=== PATIENT | male | born 1995 | race Two or more races ===

== ENCOUNTER 2025-01-25 15:56 | Inpatient (IN) | payer BC, SELFPAY ==
[2025-01-25 17:15] VITALS: BP 132/94; PULSE 91; RESP 18; TEMP 36.6; O2SAT 95; BMI 34.7
--- NOTE | 2025-01-25 17:32 | EDRME_ITS ---
Rapid Medical Screening Exam [facility] Arrival date/time: 01/25/25 15:56 Chief Complaint: Abdominal Pain Time Seen by Provider: 01/25/25 17:24 Vital signs: Vital Signs Temperature 98 F 01/25/25 17:15 Pulse Rate 91 01/25/25 17:15 Respiratory Rate 18 01/25/25 17:15 Blood Pressure 132/94 H 01/25/25 17:15 Pulse Oximetry (%) 95 01/25/25 17:15 Oxygen Delivery Method Room Air 01/25/25 17:15 RME Narrative: 29-year-old male with history of recurrent pancreatitis for many years. States he used to be an alcoholic. Reports now has recurrent flareups due to unhealthy eating. [facility] has not been told he has gallstones. Last ultrasound scan states was a year ago. No history of diabetes.
--- NOTE | 2025-01-25 17:34 | XR_ITS ---
Examination: Abdomen sonogram, Limited Date and time of exam: January 25, 2025 1834 hours INDICATIONS: Epigastric pain beginning 7:00 AM this morning, history pancreatitis Technique: Real-time moore scale transabdominal sonographic images of the upper abdomen obtained. Findings: Normal gallbladder Normal common bile duct. Enlarged pancreas 5.1 cm Liver 13.9 cm fatty infiltration Normal hepatopedal portal venous flow Patent IVC IMPRESSION: Recommend CT scan abdomen and pelvis postcontrast follow-up to confirm pancreatitis
[2025-01-25] MEDS: KETOROLAC INJ 60 MG/2 ML VIAL 30 MG IM (18:12)
[2025-01-25] MEDS: ONDANSETRON ODT 4 MG TABRAP PO (18:13)
[2025-01-25 18:16] LABS: Basophils # (Auto) 0.1 Thou/mm3 (0.0-0.2); Basophils % (Auto) 0 % (0-2.5); Eosinophils # (Auto) 0.1 Thou/mm3 (0.0-0.5); Eosinophils % (Auto) 1 % (0-10); Hematocrit 44.6 % (41.0-53.0); Hemoglobin 16.3 g/dL (13.5-16.0); Immature Granulocytes % (Auto) 0 % (0-0); Immature Granulocytes Auto 0.06 Thou/mm3 (0.00-0.00); Lymphocytes # (Auto) 2.3 Thou/mm3 (1.0-4.8); Lymphocytes % (Auto) 15 % (10-50); Mean Corpuscular HGB Conc 36.5 g/dl (31.0-37.0); Mean Corpuscular Volume 85 fL (80-100); Monocytes # (Auto) 0.8 Thou/mm3 (0.0-0.8); Monocytes % (Auto) 5 % (0-12); Neutrophils # (Auto) 12.2 Thou/mm3 (1.8-7.7); Neutrophils % (Auto) 78 % (37-80); Nucleated Red Blood Cell % 0 /100 WBC (0); Platelet Count 246 Thou/mm3 (140-440); RDW Standard Deviation 36.5 fL (35.1-43.9); Red Blood Count 5.26 Miln/mm3 (4.50-5.90); White Blood Count 15.6 Thou/mm3 (3.8-10.6)
[2025-01-25 18:49] LABS: Alanine Aminotransferase 165 U/L (10-49); Albumin, Serum 4.7 gm/dL (3.5-5.0); Albumin/Globulin Ratio 1.6 (1.2-2.2); Alkaline Phosphatase 87 U/L (46-116); Anion Gap 10 (7-16); Aspartate Amino Transferase 86 U/L (0-34); BUN/Creatinine Ratio 16 Ratio (12-20); Bilirubin,Total 1.1 mg/dL (0.3-1.2); Blood Urea Nitrogen 16 mg/dL (9-23); Calcium 9.7 mg/dL (8.3-10.6); Calcium (Corrected) 9.7 mg/dL (8.5-10.1); Carbon Dioxide 27.9 mMol/L (20.0-31.0); Chloride 101 mMol/L (98-107); Estimated Creatinine Clearance 129.3 mL/min (>60); Glucose 125 mg/dL (74-106); Lipase 260 U/L (12-53); Osmolality,Calculated 279 (275-295); Sodium 139 mMol/L (136-145); Total Protein 7.7 gm/dL (5.7-8.2); eGFR > 60 See Note
[2025-01-25 19:06] LABS: Collection Type, Urine Clean Catch; RBC,Urine 0 /hpf (0-3); WBC,Urine 0 /hpf (0-5)
[2025-01-25 19:23] LABS: Bilirubin,Urine Negative (Negative); Blood,Urine Negative (Negative); Clarity,Urine Clear (Clear/Hazy); Color,Urine Yellow (Lt Yel-Yel); Glucose, Urine Negative (Negative); Ketones,Urine Trace (Negative); Leukocyte Esterase,Urine Negative (Negative); Nitrite,Urine Negative (Negative); Protein,Urine Trace (Neg - Trace); Specific Gravity,Urine 1.035 (1.001-1.035); Squamous Epithelial Cell,Urine < 1 /hpf (0-5); Urobilinogen,Urine Negative mg/dL (0.0-1.0)
--- NOTE | 2025-01-25 19:42 | XR_ITS ---
Examination: CT abdomen with intravenous contrast CT pelvis with intravenous contrast 2-D coronal reconstructions 2-D sagittal reconstructions Date and time of exam:January 26, 2025 at 0157 hours INDICATION: Generalized abdominal pain with nausea today, pancreatitis history. CTDI: vol (mGy) 9.88 DLP: (mGycm) 633 Technique: Multiple axial sections of the abdomen and pelvis have been obtained. 64 slice high-resolution scanner used. 3 mm axial sections have been obtained, post intravenous injection 60 cc [id number] 2-D sagittal, coronal reconstructions obtained. Low dose protocols were performed. One or more of the following dose reduction techniques were used; automated exposure control, adjustment of the mA and/or KV according to patient size, use of iterative reconstruction technique. Findings: Diffuse fatty infiltration throughout the liver No gallstones Edema surrounds the pancreas No hydronephrosis. Aorta normal size No bowel obstruction Normal appendix Contracted urinary bladder IMPRESSION: Acute pancreatitis
[2025-01-25 19:52] LABS: Amphetamine/Methamp Scrn,U Negative (Negative); Barbiturate Screen,Urine Negative (Negative); Benzodiazepines Screen,Urine Negative (Negative); Benzoylecgonine Screen, Ur Negative (Negative); Fentanyl Screen,Urine Negative (Negative); Opiate Screen,Urine Positive (Negative); THC Screen,Urine Negative (Negative)
[2025-01-25 23:22] VITALS: BP 130/80; PULSE 85; RESP 18; TEMP 36.8; O2SAT 95
[2025-01-25] MEDS: SODIUM CHLORIDE 0.9% 1000 ML 1,000 ML 999 ML IV (23:35)
[2025-01-25 23:57] LABS: Lactate (Lactic Acid) 0.9 mMol/L (0.4-2.0)
[2025-01-26] VITALS (9 sets, daily range): BP systolic 108–151; BP diastolic 72–90; PULSE 60–95; RESP 16–95; TEMP 36.1–36.6; O2SAT 96–98; BMI 34.3
[2025-01-26] MEDS: MORPHINE SULF INJ 10 MG/ML VIAL 4 MG IVP
[2025-01-26] MEDS: ONDANSETRON INJ 2 MG/ML INJ 2 ML 4 MG IV ×2 (00:01→03:20)
[2025-01-26 00:13] LABS: Triglycerides 213 mg/dL (30-150)
[2025-01-26] MEDS: SODIUM CHLORIDE 0.9% 1000 ML 1,000 ML 999 ML IV (03:19)
[2025-01-26] MEDS: HYDROmorphone INJ 2 MG/ML VIAL 1 MG IVP ×5 (03:20→20:46)
--- NOTE | 2025-01-26 03:30 | PRELIM_ITS ---
CT scan of the abdomen and pelvis with intravenous contrast (axial sections with sagittal and coronal reformats) January 26, 2025 0157 hours Clinical History: Pancreatitis Comparison: None available at the time of this report. Findings: The lung bases are clear. The gallbladder, spleen, kidneys and adrenals are unremarkable. Peripancreatic fat stranding. No pancreatic duct dilation. No collections. Liver steatosis. No evidence of bowel obstruction. No evidence of appendicitis. There is no mesenteric or retroperitoneal adenopathy. The urinary bladder is unremarkable. There is no free fluid or free air. The osseous structures are unremarkable. Impression: Acute pancreatitis. Liver steatosis. Report Electronically Signed By: Ronald Avila 01/26/2025 3:30:10 AM [EST]
--- NOTE | 2025-01-26 03:49 | EDNOTE_ITS ---
ED Abdominal Pain RME/HPI General Chief Complaint: Abdominal Pain Stated complaint: ABD PAIN X 0700; HX PANCREATITIS Time seen by provider: 01/25/25 17:24 Arrival date/time: 01/25/25 15:56 RME / HPI RME / HPI narrative: 29-year-old male with history of recurrent pancreatitis for many years. States he used to be an alcoholic. Reports now has recurrent flareups due to unhealthy eating. States has not been told he has gallstones. Last ultrasound scan states was a year ago. No history of diabetes. This section includes all my notes and documentations, including HPI, PE, and ED course. Tan Garcia MD HPI: 29-year-old male here with about 12-hour history of severe upper abdominal pain. Feels like previous pain from pancreatitis. Has nausea. No vomiting. Decreased oral intake. No other complaints. ROS: All negative except as documented in HPI. Physical Exam: General: Alert and oriented. In severe pain. Eyes: Conjunctivae and lids clear. ENT: No nasal congestion. Neck: Supple. Heart: RRR. Lungs: No respiratory distress. Good air movement. No rhonchi, wheezing, rales. Abdomen: Soft with severe epigastric tenderness. Normal bowel sounds. No distension. No rebound or guarding. Back: No CVA tenderness. Skin: Warm and dry. Neuro: Alert and oriented X 3. I reviewed all diagnostic test results. My review of the gallbladder US report is no acute findings. My review of the abdominal CT report is acute pancreatitis. Blood tests and urine tests remarkable for WBC 15.6, lipase under 60. At this point, diagnoses include acute pancreatitis. Treatment here included IV fluid and multiple doses of Zofran and Toradol and morphine and Dilaudid. Significant improvement not noted. I discussed the case with our hospitalist. About the presentation and exam and diagnostics and treatments here. And need of further care in the hospital. Will accept the patient. Tan Garcia MD Related Data Previous Rx's ?Medication ?Instructions ?Recorded lipase 10,500-protease 1 cap PO TIDWM #90 caps 03/23 05/12 35,500-amylase 61,500 unit capsule,delayed rel (Pancreaze) Held on 01/26/25. Instructions: ran out Allergies Allergy/AdvReac Type Severity Reaction Status Date / Time No Known Allergies Allergy Verified 01/25/25 15:58 Course Quality Measures none Orders Category Date Time Status COVID-19 Screening Questionnaire NOW Care 01/26/25 03:[address] Screening NOW Care 01/25/25 19:42 Active Decision to Admit X1 Care 01/26/25 03:[address] abdomen pelvis w con Stat Exams 01/25/25 19:42 Taken US gall bladder Stat Exams 01/25/25 17:34 Completed CBC Stat Lab 01/25/25 17:57 Completed CMP [Comprehensive Metabolic Panel] Stat Lab 01/25/25 17:57 Completed Drug Screen,Urine Stat Lab 01/25/25 18:59 Completed Lactic Acid [Lactate (Lactic Acid)] Stat Lab 01/25/25 23:47 Completed Lipase Stat Lab 01/25/25 17:57 Completed Triglycerides Stat Lab 01/25/25 23:47 Completed UA [Urinalysis] Stat Lab 01/25/25 18:59 Completed HYDROmorphone INJ [Dilaudid Inj] Med 01/26/25 02:42 Discontinued 1 mg IVP X1 ONE Ketorolac Inj [Toradol Inj] Med 01/25/25 17:34 Discontinued 30 mg IM X1 ONE Morphine Inj Med 01/25/25 23:26 Discontinued 4 mg IVP X1 ONE Ondansetron Inj [Zofran Inj] Med 01/25/25 23:28 Discontinued 4 mg IV X1 ONE Ondansetron Inj [Zofran Inj] Med 01/26/25 02:42 Discontinued 4 mg IV X1 ONE Ondansetron Odt [Zofran Odt] Med 01/25/25 17:34 Discontinued 4 mg PO X1 ONE Sodium Chloride 0.9% 1000 ml [Ns] 1,000 ml Med 01/25/25 23:28 Discontinued IV 999 mls/hr Sodium Chloride 0.9% 1000 ml [Ns] 1,000 ml Med 01/26/25 02:42 Discontinued IV 999 mls/hr Vital Signs Vital signs: Vital Signs Temperature 98 F 01/25/25 17:15 Pulse Rate 91 01/25/25 17:15 Respiratory Rate 18 01/25/25 17:15 Blood Pressure 132/94 H 01/25/25 17:15 Pulse Oximetry (%) 95 01/25/25 17:15 Oxygen Delivery Method Room Air 01/25/25 17:15 Abdominal Pain MDM Patient data External records reviewed:: [facility] previous records Clinical information provided by:: patient Social determinants that could affect healthcare access:: none Patient has the following chronic illnesses:: History of pancreatitis How is presenting disease/condition affected by chronic disease/condition?: exacerbated by Evaluation data The following diagnostics were reviewed and interpreted by me:: lab results and radiology exam(s) Lab and/or radiology exams considered but not ordered:: None Interpretation Summary: Acute pancreatitis Medications / Prescriptions Medications or Prescriptions considered but not ordered:: None Medication administrations:: Medication Administration History Discontinued Medications Hydromorphone HCl (Hydromorphone Inj 2 Mg/Ml Vial) 1 mg IVP X1 ONE Stop: 01/26/25 02:43 Last Admin: 01/26/25 03:20 Dose: 1 mg Documented By: VARSHA Sodium Chloride (Ns) 1,000 mls @ 999 mls/hr IV .Q1H1M ONE Stop: 01/26/25 00:28 Last Infusion: 01/26/25 02:14 Dose: Infused Documented By: Admin: 01/25/25 23:35 Dose: 999 mls/hr Documented By: YIN Sodium Chloride (Ns) 1,000 mls @ 999 mls/hr IV .Q1H1M ONE Stop: 01/26/25 03:42 Last Admin: 01/26/25 03:19 Dose: 999 mls/hr Documented By: VARSHA Ketorolac Tromethamine (Ketorolac Inj 60 Mg/2 Ml Vial) 30 mg IM X1 ONE Stop: 01/25/25 17:35 Last Admin: 01/25/25 18:12 Dose: 30 mg Documented By: YIN Morphine Sulfate (Morphine Sulf Inj 10 Mg/Ml Vial) 4 mg IVP X1 ONE Stop: 01/25/25 23:27 Last Admin: 01/26/25 00:00 Dose: 4 mg Documented By: VIDHI Ondansetron HCl (Ondansetron Odt 4 Mg Tabrap) 4 mg PO X1 ONE; Protocol Stop: 01/25/25 17:35 Last Admin: 01/25/25 18:13 Dose: 4 mg Documented By: YIN Ondansetron HCl (Ondansetron Inj 2 Mg/Ml Inj 2 Ml) 4 mg IV X1 ONE; Protocol Stop: 01/25/25 23:29 Last Admin: 01/26/25 00:01 Dose: 4 mg Documented By: VIDHI Ondansetron HCl (Ondansetron Inj 2 Mg/Ml Inj 2 Ml) 4 mg IV X1 ONE; Protocol Stop: 01/26/25 02:43 Last Admin: 01/26/25 03:20 Dose: 4 mg Documented By: VARSHA IV fluid, Zofran, Toradol, morphine, Dilaudid Consultations Consultation(s) initiated? (list below): No Diagnosis Differential diagnosis abdominal pain: abdominal pain, acute appendicitis, calculus of kidney, constipation, diverticulitis, endometriosis, gastroenteritis, pancreatitis and small bowel obstruction Most likely diagnosis given after review of the tests above:: Acute pancreatitis Admission Indicated Admission indicated?: indicated Explain why admission is indicated or not indicated:: No significant improvement despite treatment in ER. Admission Request Was there a request for admission?: Yes Admission Attestation Admission request attestation: Discussed case with Hospitalist service regarding admission. Discussed patients ED course, exam findings, labs, and radiology results. The Hospitalist [agrees] to accept the patient for admission. Disposition Plan Disposition Plan: Admit Discharge Plan Plan Patient Disposition: Admit Acute Care w/in Hospital Prescriptions/Referrals Prescriptions/Med Rec: No Action Pancreaze 10,500-35,500- 61,500 unit Capsule,Delayed Release(Dr/Ec) 1 cap PO TIDWM Qty: 90 0RF Referrals: No Primary/Family,Physician [Primary Care Provider] - In 1 week Problem List Clinical Impression: Pancreatitis Patient/Caregiver Discharge Instructions Print Language: Kiswahili Stand Alone Forms: [facility]ec[facility]le Award Info., Patient Portal Info Letter
--- NOTE | 2025-01-26 04:38 | PD.RESHP ---
Documentation for date of: 01/26/25 HPI History of Present Illness Chief complaint: epigastric pain History of present illness: The patient is a 29-year-old male with previous medical history of acute alcohol induced pancreatitis, per chart review opioid and cocaine use, hypertension who only wants to like who came into the ED due to the epigastric pain that started the previous day on approximately 7 AM. He woke up with epigastric pain, intensity 8 out of 10, reports that he had taken pain medication that he had left from previous hospitalizations, denies nausea, vomiting, diarrhea, bloody stools, general weakness. ED course: Vitals stable, saturates well on room air, afebrile. Labs remarkable for mild leukocytosis 15.6, glucose 125, AST 86, ALT 165, lipase initially was 408, down trended to 260, triglycerides 213. U tox was positive for opiates. Gallbladder ultrasound was negative for acute cholecystitis, showed enlarged pancreas 5.1 cm, fatty liver. CT abdomen pelvis showed signs of acute pancreatitis and fatty liver. In the ED patient received ketorolac, 4 mg of morphine, 1 mg of hydromorphone, ondansetron and fluids. He reports his pain has improved. Social history: Works as a advanced analytics associate, denies smoking, denies recent alcohol use, denies recreational substances. Medications: denies taking Surgical history: denies Patient will be admitted for acute cholecystitis treatment and management. Review of Systems Review of Systems Systems Reviewed: All systems reviewed, normal except as documented Past Medical History Past Medical History NEUROLOGIC: Negative Neurological Disorders CARDIAC: Negative Cardiac Disorders RESPIRATORY: Negative Respiratory Disorders GASTROINTESTINAL: Positive Gastrointestinal Disorders and Pancreatitis GENITOURINARY: Negative Genitourinary Disorders MUSCULOSKELETAL: Negative Musculoskeletal Disorders ENT: Negative History of ENT Problems ENDOCRINE: Negative Endocrine Disorders HEMATOLOGIC: Negative Blood Disorders PSYCHO/SOCIAL: Positive Recreational Drug Use (denies recent use) OTHER HISTORY: Positive Hospitalization (acute pancreatitis) Exam Vital Signs Temp Pulse Resp BP Pulse Ox O2 Del Method 98.2 F 85 18 130/80 95 Room Air 01/25/25 23:22 01/25/25 23:22 01/25/25 23:22 01/25/25 23:22 01/25/25 23:22 01/25/25 23:22 Narrative Exam Physical Exam General: Awake and in no acute distress. Conversational and non-toxic appearing. HEENT: Normocephalic, atraumatic, mucous membranes moist. Heart: Regular rate and rhythm, no murmurs. Lungs: Clear to auscultation with no wheezing or crackles. Abdomen: Soft, nondistended, epigastric tenderness, positive bowel sounds. ?No guarding or rebound tenderness. Neurologic: Alert and oriented x3, no gross neurological deficit, and patient able to move all 4 extremities. Extremities: No edema. Skin: Diffuse urticaria on the abdomen, no ecchymoses. Results: Labs 01/25/25 17:57 01/25/25 17:57 Labs: Short CBC 01/25/25 Range/Units 17:57 WBC 15.6 H (3.8-10.6) Thou/mm3 Hgb 16.3 H (13.5-16.0) g/dL Hct 44.6 (41.0-53.0) % Plt Count 246 (140-440) Thou/mm3 BMP 01/25/25 17:57 Sodium 139 Potassium 4.0 Chloride 101 Carbon Dioxide 27.9 BUN 16 Creatinine 1.0 Glucose 125 H Calcium 9.7 Liver Function 01/25/25 Range/Units 17:57 Total Bilirubin 1.1 (0.3-1.2) mg/dL AST 86 H (0-34) U/L ALT 165 H (10-49) U/L Alkaline Phosphatase 87 (46-116) U/L Albumin 4.7 (3.5-5.0) gm/dL Urine 01/25/25 Range/Units 18:59 Urine Color Yellow (Lt Yel-Yel) Urine Clarity Clear (Clear/Hazy) Urine pH 6.0 (5.0-7.0) Ur Specific [place] 1.035 (1.001-1.035) Urine Protein Trace (Neg - Trace) Urine Glucose (UA) Negative (Negative) Quality Measures Quality Measures VTE prophylaxis Medications Home Medications and Allergies Home Medications ?Medication ?Instructions ?Recorded ?Confirmed ?Type No Known Home Medications 01/26/25 01/26/25 History Allergies Allergy/AdvReac Type Severity Reaction Status Date / Time No Known Allergies Allergy Verified 01/25/25 15:58 Visit Medications Acetaminophen (Acetaminophen 325 Mg Tablet) 650 mg PO Q6H PRN PRN Reason: Fever >100.3 or pain 1-3 Stop: 02/25/25 04:20 Acetaminophen (Acetaminophen Supp 650 Mg Supp) 650 mg LA Q6HR PRN PRN Reason: Fever > 100.3 or pain 1-3 Stop: 02/25/25 04:20 Enoxaparin Sodium (Enoxaparin Sod Inj 40 Mg/0.4 Ml Syringe) 40 mg SC QDAY [facility] Stop: 02/09/25 08:59 Lactated Ringer's (Lactated Ringers) 1,000 mls @ 150 mls/hr IV .Q6H40M CARO Stop: 02/25/25 04:35 Sennosides (Senna Tablet) 1 tab PO QDAY PRN; Protocol PRN Reason: constipation Stop: 02/25/25 04:20 Discontinued Medications Hydromorphone HCl (Hydromorphone Inj 2 Mg/Ml Vial) 1 mg IVP X1 ONE Stop: 01/26/25 02:43 Last Admin: 01/26/25 03:20 Dose: 1 mg Sodium Chloride (Ns) 1,000 mls @ 999 mls/hr IV .Q1H1M ONE Stop: 01/26/25 00:28 Last Infusion: 01/26/25 02:14 Dose: Infused Sodium Chloride (Ns) 1,000 mls @ 999 mls/hr IV .Q1H1M ONE Stop: 01/26/25 03:42 Last Infusion: 01/26/25 04:18 Dose: Infused Ketorolac Tromethamine (Ketorolac Inj 60 Mg/2 Ml Vial) 30 mg IM X1 ONE Stop: 01/25/25 17:35 Last Admin: 01/25/25 18:12 Dose: 30 mg Morphine Sulfate (Morphine Sulf Inj 10 Mg/Ml Vial) 4 mg IVP X1 ONE Stop: 01/25/25 23:27 Last Admin: 01/26/25 00:00 Dose: 4 mg Ondansetron HCl (Ondansetron Odt 4 Mg Tabrap) 4 mg PO X1 ONE; Protocol Stop: 01/25/25 17:35 Last Admin: 01/25/25 18:13 Dose: 4 mg Ondansetron HCl (Ondansetron Inj 2 Mg/Ml Inj 2 Ml) 4 mg IV X1 ONE; Protocol Stop: 01/25/25 23:29 Last Admin: 01/26/25 00:01 Dose: 4 mg Ondansetron HCl (Ondansetron Inj 2 Mg/Ml Inj 2 Ml) 4 mg IV X1 ONE; Protocol Stop: 01/26/25 02:43 Last Admin: 01/26/25 03:20 Dose: 4 mg Assessment & Plan Plan The patient is a 29-year-old male with previous medical history of acute alcohol induced pancreatitis, per chart review opioid and cocaine use, hypertension who only wants to like who came into the ED due to the epigastric pain that started the previous day on approximately 7 AM. Patient will be admitted for acute cholecystitis treatment and management. #Acute pancreatitis #History of alcohol induced pancreatitis Patient reports epigastic pain irradiating to the back. Lipase was 408, triglycerides 213. Plan: - NPO - Ringer Lactate at 125 ml/hr - monitor CMP - lipid panel - low fat diet on discharge #History of hypertension Plan: - blood pressure is normal, will hold off blood pressure medications #History of substance abuse Stable. Plan: - follow up outpatient if needed Health maintenance: FEN: NPO DVT prophylaxis: lovenox GI prophylaxis: none Dispo: medsurg CODE STATUS: Full code Plan of care discussed with attending Dr. Schaffer, PGY-[address] Sewell. Delmy Robledo MD, PGY 1. Attending Provider Attestation/Addendum 29-year-old male patient with history of alcoholic pancreatitis was seen in the ER complaining of abdominal pain mainly epigastric, denies nausea and vomiting. Pain was relieved slightly by IV morphine in the ER. Initial lipase was greater than 400. CO2 was 27, calcium 9.7, creatinine 1.0. Triglyceride 213. Ultrasound of the abdomen showed normal gallbladder. CT scan showed acute pancreatitis. Patient is currently admitted for recurrent pancreatitis currently denies alcohol use. Patient is on IV fluids. He will receive IV pain medications. Discussed with housestaff
[2025-01-26] MEDS: RINGERS LACTATED 1000 ML 1,000 ML 150 ML IV ×3 (05:10→20:25)
--- NOTE | 2025-01-26 05:36 | PC.NURSE ---
Report called to Leona LANDON
[2025-01-26 06:47] LABS: Basophils # (Auto) 0.1 Thou/mm3 (0.0-0.2); Basophils % (Auto) 1 % (0-2.5); Eosinophils # (Auto) 0.2 Thou/mm3 (0.0-0.5); Eosinophils % (Auto) 2 % (0-10); Hematocrit 40.4 % (41.0-53.0); Hemoglobin 14.5 g/dL (13.5-16.0); Immature Granulocytes % (Auto) 0 % (0-0); Immature Granulocytes Auto 0.03 Thou/mm3 (0.00-0.00); Lymphocytes # (Auto) 2.8 Thou/mm3 (1.0-4.8); Lymphocytes % (Auto) 28 % (10-50); Mean Corpuscular HGB Conc 35.9 g/dl (31.0-37.0); Mean Corpuscular Hemoglobin 30.9 pg (25.0-35.0); Mean Corpuscular Volume 86 fL (80-100); Monocytes # (Auto) 0.8 Thou/mm3 (0.0-0.8); Monocytes % (Auto) 8 % (0-12); Neutrophils % (Auto) 61 % (37-80); Nucleated Red Blood Cell % 0 /100 WBC (0); Platelet Count 219 Thou/mm3 (140-440); RDW Standard Deviation 38.5 fL (35.1-43.9); White Blood Count 9.9 Thou/mm3 (3.8-10.6)
[2025-01-26 07:13] LABS: Alanine Aminotransferase 116 U/L (10-49); Albumin/Globulin Ratio 1.5 (1.2-2.2); Alkaline Phosphatase 73 U/L (46-116); Anion Gap 8 (7-16); Aspartate Amino Transferase 49 U/L (0-34); BUN/Creatinine Ratio 17 Ratio (12-20); Bilirubin,Total 1.2 mg/dL (0.3-1.2); Blood Urea Nitrogen 17 mg/dL (9-23); Calcium 8.6 mg/dL (8.3-10.6); Calcium (Corrected) 8.6 mg/dL (8.5-10.1); Carbon Dioxide 29.3 mMol/L (20.0-31.0); Cardiac Risk Estimate 5.1 RATIO (4.0-6.7); Chloride 105 mMol/L (98-107); Cholesterol 164 mg/dL (132-200); Estimated Creatinine Clearance 128.8 mL/min (>60); Globulin 2.6 gm/dL (2.3-3.5); Glucose 133 mg/dL (74-106); HDL Cholesterol 32 mg/dL (40-60); LDL Cholesterol,Calculated 94 mg/dL (0-130); Osmolality,Calculated 286 (275-295); Potassium 4.2 mMol/L (3.4-5.1); Sodium 142 mMol/L (136-145); Total Protein 6.6 gm/dL (5.7-8.2); Triglycerides 192 mg/dL (30-150); eGFR > 60 See Note
--- NOTE | 2025-01-26 10:04 | PC.SS ---
Anastacio Westfall is a 29-year-old male admitted to [place] for Acute Pancreatitis. SS conducted bedside contact with the patient to complete initial assessment and to discuss discharge planning.? Patient confirmed demographic information. Patient identifies his Mother Marielle Westfall [phone] as his surrogate decision maker. Patient resides at home with family. Pt states he is able to complete all ADL?s independently, no need for any source of DME. Pt reports not having a PCP and is not interested at this time and pharmacy of choice is [facility]. DC option discussed and pt wishes to return home. Pts family will provide transportation upon DC. No further intervention required at this time, manager social responsibility would be available to address any further concerns. DC Plan: Home Contact: Mother-Marielle PCP: None
--- NOTE | 2025-01-26 15:10 | PC.SS ---
Rounding: Pain management and increase diet as tolerated
--- NOTE | 2025-01-26 15:42 | ESPR_ITS ---
<Statement entered by Desmond Rosenberg MD - 01/27/25 07:30> Senior Resident Attestation: I supervised/discussed management plan with operations intern physician Dr. Cespedes, and was involved in the care of this patient. I personally saw and examined the patient and discussed the assessment and plan with the entire medicine team, including my attending. I agree with the assessment and plan as documented. Patient's care was discussed with attending physician, Dr. Chen. Desmond Rosenberg MD PGY-2. Documentation for date of: 01/26/25 Subjective Subjective Interval history: Patient is seen and examined at bedside No acute overnight events. Currently, patient is tolerating pain with the medications Vitals are stable. On physical examination mild epigastric tenderness is noted Labs showed CBC and CMP within normal limits except for mildly elevated AST and ALT Lipase is down to 260 Exam Vital Signs Temp Pulse Resp BP Pulse Ox O2 Del Method 97.3 F 88 16 142/87 H 96 Room Air 01/26/25 11:52 01/26/25 11:52 01/26/25 11:52 01/26/25 11:52 01/26/25 11:52 01/26/25 11:52 Narrative Exam General: Awake. HEENT: Normocephalic, atraumatic, mucous membranes moist. Heart: Regular rate and rhythm, no murmurs. Lungs: Clear to auscultation with no wheezing or crackles. Abdomen: Soft, nondistended, mild tenderness in the epigastric region, positive bowel sounds. ?No guarding or rebound tenderness. Neurologic: Alert and oriented x3, no gross neurological deficit, and patient able to move all 4 extremities. Extremities: No edema. Skin: No rash or ecchymoses. Objective Labs 01/27/25 04:12 01/27/25 04:12 Labs: Laboratory Results - last 24 hr 01/25/25 01/25/25 01/25/25 17:57 18:59 23:47 WBC 15.6 H RBC 5.26 Hgb 16.3 H Hct 44.6 MCV 85 MCH 31.0 MCHC 36.5 RDW Std Deviation 36.5 Plt Count 246 Neut % (Auto) 78 Lymph % (Auto) 15 [place] % (Auto) 5 Eos % (Auto) 1 Baso % (Auto) 0 Neut # (Auto) 12.2 H Lymph # (Auto) 2.3 [place] # (Auto) 0.8 Eos # (Auto) 0.1 Baso # (Auto) 0.1 Immature Gran # (Auto) 0.06 H Absolute Nucleated RBC 0.00 Immature Gran % 0 Nucleated RBC % 0 Sodium 139 Potassium 4.0 Chloride 101 Carbon Dioxide 27.9 Anion Gap 10 BUN 16 Creatinine 1.0 Estim Creat Clear Calc 129.3 eGFR > 60 BUN/Creatinine Ratio 16 Glucose 125 H Calculated Osmolality 279 Lactic Acid 0.9 Calcium 9.7 Corrected Calcium 9.7 Total Bilirubin 1.1 AST 86 H ALT 165 H Alkaline Phosphatase 87 Total Protein 7.7 Albumin 4.7 Globulin 3.0 Albumin/Globulin Ratio 1.6 Triglycerides 213 H Cholesterol LDL Cholesterol, Calc HDL Cholesterol Cholesterol/HDL Ratio Lipase 260 H Ur Collection Type Clean Catch Urine Color Yellow Urine Clarity Clear Urine pH 6.0 Ur Specific [place] 1.035 Urine Protein Trace Urine Glucose (UA) Negative Urine Ketones Trace Urine Blood Negative Urine Nitrite Negative Urine Bilirubin Negative Urine Urobilinogen (Auto) Negative Ur Leukocyte Esterase Negative Urine RBC 0 Urine WBC 0 Ur Squamous Epith Cells < 1 Urine Bacteria None Urine Opiates Screen Positive A Urine Fentanyl Screen Negative Ur Barbiturates Screen Negative U Amphetamin/Meth Scrn Negative U Benzodiazepines Scrn Negative U Cocaine Metab Screen Negative U Marijuana (THC) Screen Negative 01/26/25 06:24 WBC 9.9 D RBC 4.70 Hgb 14.5 Hct 40.4 L MCV 86 MCH 30.9 MCHC 35.9 RDW Std Deviation 38.5 Plt Count 219 Neut % (Auto) 61 Lymph % (Auto) 28 [place] % (Auto) 8 Eos % (Auto) 2 Baso % (Auto) 1 Neut # (Auto) 6.0 Lymph # (Auto) 2.8 [place] # (Auto) 0.8 Eos # (Auto) 0.2 Baso # (Auto) 0.1 Immature Gran # (Auto) 0.03 H Absolute Nucleated RBC 0.00 Immature Gran % 0 Nucleated RBC % 0 Sodium 142 Potassium 4.2 Chloride 105 Carbon Dioxide 29.3 Anion Gap 8 BUN 17 Creatinine 1.0 Estim Creat Clear Calc 128.8 eGFR > 60 BUN/Creatinine Ratio 17 Glucose 133 H Calculated Osmolality 286 Lactic Acid Calcium 8.6 Corrected Calcium 8.6 Total Bilirubin 1.2 AST 49 H ALT 116 H Alkaline Phosphatase 73 Total Protein 6.6 Albumin 4.0 D Globulin 2.6 Albumin/Globulin Ratio 1.5 Triglycerides 192 H Cholesterol 164 LDL Cholesterol, Calc 94 HDL Cholesterol 32 L Cholesterol/HDL Ratio 5.1 Lipase Ur Collection Type Urine Color Urine Clarity Urine pH Ur Specific [place] Urine Protein Urine Glucose (UA) Urine Ketones Urine Blood Urine Nitrite Urine Bilirubin Urine Urobilinogen (Auto) Ur Leukocyte Esterase Urine RBC Urine WBC Ur Squamous Epith Cells Urine Bacteria Urine Opiates Screen Urine Fentanyl Screen Ur Barbiturates Screen U Amphetamin/Meth Scrn U Benzodiazepines Scrn U Cocaine Metab Screen U Marijuana (THC) Screen Quality Measures Quality Measures VTE prophylaxis Assessment & Plan Assessment Current Active Medications: Generic Name Dose Route Start Last Admin Trade Name Freq PRN Reason Stop Dose Admin Acetaminophen 650 mg 01/26/25 04:21 Acetaminophen 325 Mg Tablet PO 02/25/25 04:20 Q6H PRN Fever >100.3 or pain 1-3 Acetaminophen 650 mg 01/26/25 04:21 Acetaminophen Supp 650 Mg Supp [place] 02/25/25 04:20 Q6HR PRN Fever > 100.3 or pain 1-3 Enoxaparin Sodium 40 mg 01/26/25 09:00 01/26/25 08:29 Enoxaparin Sod Inj 40 Mg/0.4 Ml Syringe SC 02/09/25 08:59 Not Given QDAY CARO Hydromorphone HCl 1 mg 01/26/25 04:38 01/26/25 11:41 Hydromorphone Inj 2 Mg/Ml Vial IVP 01/31/25 04:37 1 mg Q4HR PRN Administration PAIN SCALE 7-10 (Severe Lactated Ringer's 1,000 mls @ 150 mls/hr 01/26/25 04:36 01/26/25 12:36 Lactated Ringers IV 02/25/25 04:35 150 mls/hr .Q6H40M CARO Administration Morphine Sulfate 1 mg 01/26/25 04:38 Morphine Sulf Inj 10 Mg/Ml Vial IVP 01/31/25 04:37 Q4HR PRN PAIN SCALE 4-6 (Moderate Sennosides 1 tab 01/26/25 04:21 Senna Tablet PO 02/25/25 04:20 QDAY PRN constipation Protocol Plan a 29-year-old male with previous medical history of acute alcohol induced pancreatitis, hypertension who came into the ED due to the epigastric pain that started the previous day on approximately 7 AM. Patient will be admitted for acute pancreatitis management. # Recurrent acute pancreatitis #History of alcohol induced pancreatitis Patient reports epigastic pain radiating to the back. -Last alcohol consumption was 8 to 9 years ago, but patient -Lipase is 260, triglycerides 213. Plan: - NPO - Ringer Lactate at 150 ml/hr - Hydromorphone 1 Mg as needed every 4th hrly #History of hypertension Plan: - blood pressure is normal, will hold off blood pressure medications Health maintenance: FEN: NPO DVT prophylaxis: lovenox GI prophylaxis: none Dispo: medsurg CODE STATUS: Full code Patient plan of care was discussed with the attending physician, Dr. Chen and senior resident Dr. Shakira Cespedes, PGY1
[2025-01-27] VITALS (8 sets, daily range): BP systolic 110–132; BP diastolic 62–97; PULSE 51–86; RESP 16–97; TEMP 36.2–36.6; O2SAT 95–99
[2025-01-27] MEDS: HYDROmorphone INJ 2 MG/ML VIAL 1 MG IVP ×7 (00:50→23:55)
[2025-01-27] MEDS: RINGERS LACTATED 1000 ML 1,000 ML 150 ML IV (03:15)
[2025-01-27 05:07] LABS: Basophils # (Auto) 0.1 Thou/mm3 (0.0-0.2); Basophils % (Auto) 1 % (0-2.5); Eosinophils # (Auto) 0.2 Thou/mm3 (0.0-0.5); Eosinophils % (Auto) 3 % (0-10); Hematocrit 41.4 % (41.0-53.0); Hemoglobin 14.7 g/dL (13.5-16.0); Immature Granulocytes % (Auto) 0 % (0-0); Immature Granulocytes Auto 0.03 Thou/mm3 (0.00-0.00); Lymphocytes # (Auto) 2.9 Thou/mm3 (1.0-4.8); Lymphocytes % (Auto) 31 % (10-50); Mean Corpuscular HGB Conc 35.5 g/dl (31.0-37.0); Mean Corpuscular Hemoglobin 30.9 pg (25.0-35.0); Mean Corpuscular Volume 87 fL (80-100); Monocytes # (Auto) 0.6 Thou/mm3 (0.0-0.8); Monocytes % (Auto) 7 % (0-12); Neutrophils # (Auto) 5.5 Thou/mm3 (1.8-7.7); Neutrophils % (Auto) 58 % (37-80); Nucleated Red Blood Cell % 0 /100 WBC (0); Platelet Count 214 Thou/mm3 (140-440); RDW Standard Deviation 38.4 fL (35.1-43.9); Red Blood Count 4.75 Miln/mm3 (4.50-5.90); White Blood Count 9.4 Thou/mm3 (3.8-10.6)
[2025-01-27 05:33] LABS: Alanine Aminotransferase 90 U/L (10-49); Albumin, Serum 4.1 gm/dL (3.5-5.0); Albumin/Globulin Ratio 1.5 (1.2-2.2); Alkaline Phosphatase 74 U/L (46-116); Anion Gap 10 (7-16); Aspartate Amino Transferase 37 U/L (0-34); BUN/Creatinine Ratio 11 Ratio (12-20); Bilirubin,Total 1.3 mg/dL (0.3-1.2); Blood Urea Nitrogen 10 mg/dL (9-23); Calcium 9.2 mg/dL (8.3-10.6); Calcium (Corrected) 9.2 mg/dL (8.5-10.1); Carbon Dioxide 29.5 mMol/L (20.0-31.0); Chloride 101 mMol/L (98-107); Creatinine (Component) 0.9 mg/dL (0.6-1.3); Estimated Creatinine Clearance 143.1 mL/min (>60); Globulin 2.7 gm/dL (2.3-3.5); Glucose 113 mg/dL (74-106); Osmolality,Calculated 279 (275-295); Potassium 3.8 mMol/L (3.4-5.1); Sodium 140 mMol/L (136-145); Total Protein 6.8 gm/dL (5.7-8.2); eGFR > 60 See Note
--- NOTE | 2025-01-27 10:03 | PC.SS ---
SS follow up note; Possible discharge home today if patient is able to tolerate diet.
[2025-01-27] MEDS: RINGERS LACTATED 1000 ML 1,000 ML 125 ML IV ×2 (10:55→19:53)
--- NOTE | 2025-01-27 15:58 | PC.NURSE ---
Patient c/o pain to abd radiating to back 08/01. Patient states pain is causing anxiety leading tingling in face, lips and finger tips. Patient states needs pain medication. Dilaudid pain medication not due until 1620. RN called . Per okay to give Dilaudid now.
--- NOTE | 2025-01-27 16:08 | ESPR_ITS ---
<Statement entered by Desmond Rosenberg MD - 01/29/25 07:35> Senior Resident Attestation: I supervised/discussed management plan with art gallery internship physician Dr. Cespedes, and was involved in the care of this patient. I personally saw and examined the patient and discussed the assessment and plan with the entire medicine team, including my attending. I agree with the assessment and plan as documented. Patient's care was discussed with attending physician, Dr. Zacarias. Desmond Rosenberg MD PGY-2. Documentation for date of: 01/27/25 Subjective Subjective Interval history: Patient is seen and examined at bedside No acute overnight events. Still complaining of mild abdominal pain and not able to tolerate diet, even clear liquids Vitals are stable. Physical examination remains unremarkable Labs showed CBC and CMP within normal limits except for mildly elevated total bilirubin 1.3, AST and ALT are downtrending We will continue IV fluids, opioids as needed for pain Exam Vital Signs Temp Pulse Resp BP Pulse Ox O2 Del Method 97.1 F 54 L 16 126/73 96 Room Air 01/27/25 12:00 01/27/25 12:00 01/27/25 12:00 01/27/25 12:00 01/27/25 12:00 01/27/25 12:00 Narrative Exam General: Awake. HEENT: Normocephalic, atraumatic, mucous membranes moist. Heart: Regular rate and rhythm, no murmurs. Lungs: Clear to auscultation with no wheezing or crackles. Abdomen: Soft, nondistended, mild tenderness in the epigastric region, positive bowel sounds. ?No guarding or rebound tenderness. Neurologic: Alert and oriented x3, no gross neurological deficit, and patient able to move all 4 extremities. Extremities: No edema. Skin: No rash or ecchymoses. Objective Labs 01/28/25 04:20 01/28/25 04:20 Labs: Laboratory Results - last 24 hr 01/27/25 04:12 WBC 9.4 RBC 4.75 Hgb 14.7 Hct 41.4 MCV 87 MCH 30.9 MCHC 35.5 RDW Std Deviation 38.4 Plt Count 214 Neut % (Auto) 58 Lymph % (Auto) 31 [place] % (Auto) 7 Eos % (Auto) 3 Baso % (Auto) 1 Neut # (Auto) 5.5 Lymph # (Auto) 2.9 [place] # (Auto) 0.6 Eos # (Auto) 0.2 Baso # (Auto) 0.1 Immature Gran # (Auto) 0.03 H Absolute Nucleated RBC 0.00 Immature Gran % 0 Nucleated RBC % 0 Sodium 140 Potassium 3.8 Chloride 101 Carbon Dioxide 29.5 Anion Gap 10 BUN 10 Creatinine 0.9 Estim Creat Clear Calc 143.1 eGFR > 60 BUN/Creatinine Ratio 11 L Glucose 113 H Calculated Osmolality 279 Calcium 9.2 Corrected Calcium 9.2 Total Bilirubin 1.3 H AST 37 H ALT 90 H Alkaline Phosphatase 74 Total Protein 6.8 Albumin 4.1 Globulin 2.7 Albumin/Globulin Ratio 1.5 Quality Measures Quality Measures VTE prophylaxis Assessment & Plan Assessment Current Active Medications: Generic Name Dose Route Start Last Admin Trade Name Freq PRN Reason Stop Dose Admin Acetaminophen 650 mg 01/26/25 04:21 Acetaminophen 325 Mg Tablet PO 02/25/25 04:20 Q6H PRN Fever >100.3 or pain 1-3 Acetaminophen 650 mg 01/26/25 04:21 Acetaminophen Supp 650 Mg Supp [place] 02/25/25 04:20 Q6HR PRN Fever > 100.3 or pain 1-3 Enoxaparin Sodium 40 mg 01/26/25 09:00 01/27/25 08:20 Enoxaparin Sod Inj 40 Mg/0.4 Ml Syringe SC 02/09/25 08:59 Not Given QDAY CARO Hydromorphone HCl 1 mg 01/26/25 04:38 01/27/25 15:55 Hydromorphone Inj 2 Mg/Ml Vial IVP 01/31/25 04:37 1 mg Q4HR PRN Administration PAIN SCALE 7-10 (Severe Lactated Ringer's 1,000 mls @ 150 mls/hr 01/26/25 04:36 01/27/25 03:15 Lactated Ringers IV 02/25/25 04:35 150 mls/hr .Q6H40M CARO Administration Lactated Ringer's 1,000 mls @ 125 mls/hr 01/27/25 10:50 01/27/25 10:55 Lactated Ringers IV 01/28/25 02:49 125 mls/hr .Q8H CARO Administration Sennosides 1 tab 01/26/25 04:21 Senna Tablet PO 02/25/25 04:20 QDAY PRN constipation Protocol Plan a 29-year-old male with previous medical history of acute alcohol induced pancreatitis, hypertension who came into the ED due to the epigastric pain that started the previous day on approximately 7 AM. Patient will be admitted for acute Pancreatitis management. # Recurrent acute pancreatitis, unsure of the cause # History of alcohol induced pancreatitis Patient reports epigastic pain radiating to the back. Last alcohol consumption was 8 to 9 years ago, per patient Lipase is 260 and triglycerides 213 at the time of admission Plan: - Clear liquid diet - Ringer Lactate at 150 ml/hr - Hydromorphone 1 Mg as needed every 4th hrly -Recommended to follow-up in outpatient basis for workup of recurrent acute pancreatitis -Recommended to stop marijuana # Hyperbilirubinemia # Transaminitis, resolving -AST and ALT are downtrending since the time of admission, likely elevated in the setting of acute illness -Total bilirubin seems to be uptrending since the time of admission, as of 01/27/2025, total bilirubin is 1.3 -Will continue to monitor liver functions and if the lab values are uptrending, will workup #History of hypertension Plan: - blood pressure is normal, will hold off blood pressure medications # Marijuana abuse -Patient admitted that he is smoking marijuana -Educated about stopping the use of marijuana Health maintenance: FEN: Clear liquid diet DVT prophylaxis: lovenox GI prophylaxis: none Dispo: medsurg CODE STATUS: Full code Patient plan of care was discussed with the attending physician, Dr. Zacarias and senior resident Dr. Shakira Cespedes, PGY1 Attending Provider Attestation/Addendum I attest that I was physically present for the evaluation, physical examination, lab and imaging review of the patient with the residents. I discussed the case with the residents and agree with the findings and plans of care as documented above. At bedside today, patient appears comfortable.? States that his pain has improved but not resolved completely.? Continues to be on IV hydration.? Was started on diet, complains of abdominal pain with food.? We will continue with IV analgesics and antiemetics.? Bilirubin noted to be slightly uptrending, we will monitor closely. Kailee Zacarias MD
[2025-01-28] VITALS: BP 148/98; PULSE 53; RESP 18; TEMP 36.4; O2SAT 100
--- NOTE | 2025-01-28 02:26 | PC.NURSE ---
Pt called stated he is in pain 06/01, states that Dilaudid does not last that long and would like to try a different regimen, would like MDs to be contacted. Contacted Dr. Melodie MD to input orders.
[2025-01-28] MEDS: HYDROmorphone INJ 2 MG/ML VIAL 0.5 MG IVP (02:56)
[2025-01-28] MEDS: RINGERS LACTATED 1000 ML 1,000 ML 150 ML IV (02:56)
[2025-01-28 04:00] VITALS: BP 130/63; PULSE 65; RESP 18; TEMP 36.2; O2SAT 99
[2025-01-28] MEDS: HYDROmorphone INJ 2 MG/ML VIAL 1 MG IVP ×2 (05:25→09:45)
[2025-01-28 05:45] LABS: Basophils # (Auto) 0.1 Thou/mm3 (0.0-0.2); Basophils % (Auto) 1 % (0-2.5); Eosinophils # (Auto) 0.3 Thou/mm3 (0.0-0.5); Eosinophils % (Auto) 4 % (0-10); Hematocrit 40.7 % (41.0-53.0); Hemoglobin 14.7 g/dL (13.5-16.0); Immature Granulocytes % (Auto) 0 % (0-0); Immature Granulocytes Auto 0.03 Thou/mm3 (0.00-0.00); Lymphocytes # (Auto) 2.8 Thou/mm3 (1.0-4.8); Lymphocytes % (Auto) 34 % (10-50); Mean Corpuscular HGB Conc 36.1 g/dl (31.0-37.0); Mean Corpuscular Hemoglobin 30.9 pg (25.0-35.0); Mean Corpuscular Volume 86 fL (80-100); Monocytes # (Auto) 0.7 Thou/mm3 (0.0-0.8); Monocytes % (Auto) 8 % (0-12); Neutrophils # (Auto) 4.4 Thou/mm3 (1.8-7.7); Neutrophils % (Auto) 54 % (37-80); Nucleated Red Blood Cell % 0 /100 WBC (0); Platelet Count 232 Thou/mm3 (140-440); RDW Standard Deviation 36.7 fL (35.1-43.9); Red Blood Count 4.75 Miln/mm3 (4.50-5.90); White Blood Count 8.3 Thou/mm3 (3.8-10.6)
[2025-01-28 06:08] LABS: Alanine Aminotransferase 100 U/L (10-49); Albumin, Serum 4.4 gm/dL (3.5-5.0); Albumin/Globulin Ratio 1.6 (1.2-2.2); Alkaline Phosphatase 75 U/L (46-116); Anion Gap 10 (7-16); Aspartate Amino Transferase 57 U/L (0-34); BUN/Creatinine Ratio 10 Ratio (12-20); Bilirubin,Total 1.5 mg/dL (0.3-1.2); Blood Urea Nitrogen 9 mg/dL (9-23); Calcium 9.9 mg/dL (8.3-10.6); Calcium (Corrected) 9.9 mg/dL (8.5-10.1); Carbon Dioxide 29.1 mMol/L (20.0-31.0); Chloride 100 mMol/L (98-107); Creatinine (Component) 0.9 mg/dL (0.6-1.3); Estimated Creatinine Clearance 143.1 mL/min (>60); Globulin 2.7 gm/dL (2.3-3.5); Glucose 106 mg/dL (74-106); Osmolality,Calculated 276 (275-295); Potassium 3.8 mMol/L (3.4-5.1); Sodium 139 mMol/L (136-145); Total Protein 7.1 gm/dL (5.7-8.2); eGFR > 60 See Note
[2025-01-28 08:00] VITALS: BP 131/81; PULSE 72; RESP 17; TEMP 36.1; O2SAT 97
[2025-01-28] MEDS: RINGERS LACTATED 1000 ML 1,000 ML 125 ML IV (09:46)
--- NOTE | 2025-01-28 09:54 | PC.SS ---
SS follow up note; Patient is not tolerating diet, patient is still having pain.
[2025-01-28 11:10] VITALS: PULSE 85; RESP 18; RESP 96
--- NOTE | 2025-01-28 11:22 | XR_ITS ---
Examination: Abdomen sonogram, Limited Date and time of exam: January 28, 2025 1311 hrs. Indications: Gastric pain beginning 4 days ago Technique: Real-time moore scale transabdominal sonographic images of the upper abdomen obtained. Findings: Negative for gallstones Normal gallbladder wall 0.2 cm Common bile duct 0.4 cm Pancreatic head 3.9 cm Liver 14.7 cm fatty infiltration No focal liver lesions Normal hepatopedal portal venous flow Patent IVC Impression: Normal gallbladder Prominent pancreatic head, please see the CT abdomen report January 26, 2025 Fatty liver
[2025-01-28 12:00] VITALS: BP 139/65; PULSE 77; RESP 18; TEMP 36.2; O2SAT 95
[2025-01-28 12:00] LABS: Lipase 51 U/L (12-53)
[2025-01-28] MEDS: KETOROLAC INJ 30 MG/ML VIAL 15 MG IVP (13:33)
[2025-01-28 16:00] VITALS: BP 128/79; PULSE 88; RESP 18; TEMP 36.2; O2SAT 96
--- NOTE | 2025-01-28 16:41 | PD.RESPRO ---
Documentation for date of: 01/28/25 Subjective Subjective Interval history: Patient is seen and examined at bedside No acute overnight events. Still complaining of abdominal pain but without any vomitings and not able to tolerate any fluid intake Vitals are stable. Physical examination remains unremarkable Labs showed CBC within normal limits, total bilirubin 1.5, AST 57, ALT 100. Lipase levels came back to normal limits Liver ultrasound is ordered in view of elevating liver enzymes, T. bili-did not show any gallstones or CBD stones Changed Hydromorphone to ketorolac Exam Vital Signs Temp Pulse Resp BP Pulse Ox O2 Del Method 97.2 F 88 18 128/79 96 Room Air 01/28/25 16:00 01/28/25 16:00 01/28/25 16:00 01/28/25 16:00 01/28/25 16:00 01/28/25 16:00 Narrative Exam General: Awake. HEENT: Normocephalic, atraumatic, mucous membranes moist. Heart: Regular rate and rhythm, no murmurs. Lungs: Clear to auscultation with no wheezing or crackles. Abdomen: Soft, nondistended, mild tenderness in the epigastric region, positive bowel sounds. ?No guarding or rebound tenderness. Neurologic: Alert and oriented x3, no gross neurological deficit, and patient able to move all 4 extremities. Extremities: No edema. Skin: No rash or ecchymoses. Objective Labs 01/28/25 04:20 01/28/25 04:20 Labs: Laboratory Results - last 24 hr 01/28/25 04:20 WBC 8.3 RBC 4.75 Hgb 14.7 Hct 40.7 L MCV 86 MCH 30.9 MCHC 36.1 RDW Std Deviation 36.7 Plt Count 232 Neut % (Auto) 54 Lymph % (Auto) 34 [place] % (Auto) 8 Eos % (Auto) 4 Baso % (Auto) 1 Neut # (Auto) 4.4 Lymph # (Auto) 2.8 [place] # (Auto) 0.7 Eos # (Auto) 0.3 Baso # (Auto) 0.1 Immature Gran # (Auto) 0.03 H Absolute Nucleated RBC 0.00 Immature Gran % 0 Nucleated RBC % 0 Sodium 139 Potassium 3.8 Chloride 100 Carbon Dioxide 29.1 Anion Gap 10 BUN 9 Creatinine 0.9 Estim Creat Clear Calc 143.1 eGFR > 60 BUN/Creatinine Ratio 10 L Glucose 106 Calculated Osmolality 276 Calcium 9.9 Corrected Calcium 9.9 Total Bilirubin 1.5 H AST 57 H ALT 100 H Alkaline Phosphatase 75 Total Protein 7.1 Albumin 4.4 Globulin 2.7 Albumin/Globulin Ratio 1.6 Lipase 51 D Quality Measures Quality Measures VTE prophylaxis Assessment & Plan Assessment Current Active Medications: Generic Name Dose Route Start Last Admin Trade Name Freq PRN Reason Stop Dose Admin Acetaminophen 650 mg 01/26/25 04:21 Acetaminophen 325 Mg Tablet PO 02/25/25 04:20 Q6H PRN Fever >100.3 or pain 1-3 Acetaminophen 650 mg 01/26/25 04:21 Acetaminophen Supp 650 Mg Supp [place] 02/25/25 04:20 Q6HR PRN Fever > 100.3 or pain 1-3 Enoxaparin Sodium 40 mg 01/26/25 09:00 01/28/25 09:04 Enoxaparin Sod Inj 40 Mg/0.4 Ml Syringe SC 02/09/25 08:59 Not Given QDAY CARO Lactated Ringer's 1,000 mls @ 125 mls/hr 01/28/25 09:11 01/28/25 09:46 Lactated Ringers IV 01/28/25 17:10 125 mls/hr .Q8H ONE Administration Ketorolac Tromethamine 15 mg 01/28/25 11:23 01/28/25 13:33 Ketorolac Inj 30 Mg/Ml Vial IVP 02/02/25 11:22 15 mg Q6HR PRN Administration Pain 7-10 Sennosides 1 tab 01/26/25 04:21 Senna Tablet PO 02/25/25 04:20 QDAY PRN constipation Protocol Plan A 29-year-old male with previous medical history of acute alcohol induced pancreatitis, hypertension who came into the ED due to the epigastric pain that started the previous day on approximately 7 AM. Patient will be admitted for acute Pancreatitis management. # Recurrent acute pancreatitis, unsure of the cause # History of alcohol induced pancreatitis Patient reports epigastic pain radiating to the back. Last alcohol consumption was 8 to 9 years ago, per patient Lipase is 260 and triglycerides 213 at the time of admission Plan: - Clear liquid diet - Normal saline at 150 cc/h - Hydromorphone 1 Mg as needed every 4th hrly, changed to Toradol 15 Mg every fourth hourly -Recommended to follow-up in outpatient basis for workup of recurrent acute pancreatitis -Recommended to stop marijuana # Hyperbilirubinemia # Transaminitis -AST and ALT are downtrending since the time of admission, likely elevated in the setting of acute illness -But on 01/28/2025, mild elevation of AST, ALT and bilirubin is noted, liver ultrasound done which did not show any CBD or gallbladder stones, will reevaluate tomorrow -Total bilirubin seems to be uptrending since the time of admission, as of 01/28/2025, total bilirubin is 1.5 -Will continue to monitor liver functions and if the lab values are uptrending, will workup #History of hypertension Plan: - blood pressure is normal, will hold off blood pressure medications # Marijuana abuse -Patient admitted that he is smoking marijuana -Educated about stopping the use of marijuana Health maintenance: FEN: Clear liquid diet DVT prophylaxis: lovenox GI prophylaxis: none Dispo: medsurg CODE STATUS: Full code Patient plan of care was discussed with the attending physician, Dr. Deann Cespedes, PGY1 Attending Provider Attestation/Addendum I attest that I was physically present for the evaluation, physical examination, lab and imaging review of the patient with the residents. I discussed the case with the residents and agree with the findings and plans of care as documented above. At bedside today, patient appears comfortable.? States that he continues to have abdominal pain. His pain worsened yesterday after diet, did not try taking food this morning in anticipation of pain. Continues to be on IV hydration, normal saline at 150 cc/h. Patient has been receiving [id number] hydromorphone. We will switch his analgesics to IV Toradol. We will continue to monitor closely for pain and nausea, we will attempt to restart his diet as tolerated. Patient noted to have uptrending bilirubin, AST and ALT. Liver ultrasound was obtained, did not show gallstones or CBD stones. Likely from his fatty liver disease, we will monitor closely. Kailee Zacarias MD
--- NOTE | 2025-01-28 18:14 | PD.RESEVENT ---
Documentation for date of: 01/28/25 Event Note Event Note: Nurse called around 6:05 PM, as patient wants to leave the hospital, as he is feeling good and wants to take Tylenol at home for pain management and does not want to advance diet for at least couple of days. Patient mental status is evaluated and he is alert awake and oriented. Risks and benefits of leaving AGAINST MEDICAL ADVICE were explained to the patient in the presence of the nurse at the bedside. Patient understood the entire conversation and wants to leave AGAINST MEDICAL ADVICE. Recommended to follow-up in outpatient basis with primary care provider and return to the ED if his symptoms worsen. Patient plan of care was discussed with the attending physician, Dr. Deann Cespedes, PGY1
== END 2025-01-28 18:17 | disposition left against medical advice (07) | DRG 440 ==
LOC: SERX 01-26 03:48 → SERHOLD 01-27 06:35 → S3NX 01-27 06:35
PROVIDERS: Physician Assistant; Admitting Provider Internal Medicine; Emergency Provider Emergency Medicine; Visit Provider Student in an Organized Health Care Education/Training Program
DX: K85.90 Acute pancreatitis without necrosis or infection, unspecified (principal); I10 Essential (primary) hypertension; Z53.29 Procedure and treatment not carried out because of patient's decision for other reasons; R74.01 Elevation of levels of liver transaminase levels; F12.10 Cannabis abuse, uncomplicated
CPT/HCPCS: 36415; 74177; 76705; 80053; 80061; 80307; 81001; 83605; 83690; 84478; 85025; 96361; 96374; 96375; 96376; 99285; A4649; J1650; J1885; J2270; J2405; J3490; J7030; J7120; Q0162; Q9967

== ENCOUNTER 2025-09-03 01:16 | Inpatient (IN) | payer BC, SELFPAY ==
[2025-09-03] VITALS (8 sets, daily range): BP systolic 125–159; BP diastolic 79–117; PULSE 61–90; RESP 12–22; TEMP 35.9–36.7; O2SAT 95–100; BMI 30.8; BMI 30.7
--- NOTE | 2025-09-03 01:43 | XR_ITS ---
Examination: Abdomen sonogram, Limited Date and time: September 03, 2025, 0236 hours INDICATIONS: Onset right upper abdominal pain today Technique: Real-time moore scale transabdominal sonographic images of the upper abdomen obtained. Findings: Negative for gallstones Common bile duct 0.2 cm Pancreas obscured by bowel gas Liver 13.6 cm fatty infiltration no focal liver lesions Normal hepatopetal portal venous flow Patent IVC IMPRESSION: Normal gallbladder Fatty infiltration throughout the liver
--- NOTE | 2025-09-03 01:44 | PD.EDRME ---
Rapid Medical Screening Exam RME Arrival date/time: 09/03/25 01:16 30M with history of drug/alcohol use causing recurrent pancreatitis presents to ED with similar symptoms that started yesterday including upper ab pain. Chief Complaint: Abdominal Pain Vital signs: Vital Signs Temperature 97.9 F 09/03/25 01:36 Pulse Rate 89 09/03/25 01:36 Respiratory Rate 22 H 09/03/25 01:36 Blood Pressure 145/84 H 09/03/25 01:36 Pulse Oximetry (%) 99 09/03/25 01:36 Oxygen Delivery Method Room Air 09/03/25 01:36 Exam: RUQ/epigastric tenderness Clinical Impression: ab pain vs biliary disease vs pancreatitis vs gastritis vs drug use
[2025-09-03] MEDS: ONDANSETRON INJ 2 MG/ML INJ 2 ML 4 MG IVP ×3 (02:04→21:14)
[2025-09-03] MEDS: MORPHINE SULF INJ 4 MG/ML VIAL IV (02:04)
[2025-09-03] MEDS: RINGERS LACTATED 1000 ML 1,000 ML 999 ML IV ×3 (02:04→06:01)
[2025-09-03 02:05] LABS: Basophils # (Auto) 0.1 Thou/mm3 (0.0-0.2); Basophils % (Auto) 1 % (0-2.5); Eosinophils # (Auto) 0.5 Thou/mm3 (0.0-0.5); Eosinophils % (Auto) 5 % (0-10); Hematocrit 48.2 % (41.0-53.0); Hemoglobin 17.1 g/dL (13.5-16.0); Immature Granulocytes Auto 0.02 Thou/mm3 (0.00-0.00); Lymphocytes # (Auto) 3.6 Thou/mm3 (1.0-4.8); Lymphocytes % (Auto) 34 % (10-50); Mean Corpuscular HGB Conc 35.5 g/dl (31.0-37.0); Mean Corpuscular Hemoglobin 31.1 pg (25.0-35.0); Mean Corpuscular Volume 88 fL (80-100); Monocytes # (Auto) 0.6 Thou/mm3 (0.0-0.8); Monocytes % (Auto) 6 % (0-12); Neutrophils # (Auto) 5.8 Thou/mm3 (1.8-7.7); Neutrophils % (Auto) 55 % (37-80); Nucleated Red Blood Cell # 0.00 Thou/mm3 (0.00-0.00); Nucleated Red Blood Cell % 0 /100 WBC (0); Platelet Count 257 Thou/mm3 (140-440); RDW Standard Deviation 39.3 fL (35.1-43.9); Red Blood Count 5.49 Miln/mm3 (4.50-5.90); White Blood Count 10.6 Thou/mm3 (3.8-10.6)
[2025-09-03 02:16] LABS: Alanine Aminotransferase 213 U/L (10-49); Albumin, Serum 5.1 gm/dL (3.5-5.0); Albumin/Globulin Ratio 2.0 (1.2-2.2); Alcohol, Blood Medical < 3.0 mg/dL (0-10.0); Alkaline Phosphatase 89 U/L (46-116); Anion Gap 9 (7-16); Aspartate Amino Transferase 115 U/L (0-34); BUN/Creatinine Ratio 14 Ratio (12-20); Bilirubin,Total 1.2 mg/dL (0.3-1.2); Blood Urea Nitrogen 14 mg/dL (9-23); Calcium 9.5 mg/dL (8.3-10.6); Calcium (Corrected) 9.5 mg/dL (8.5-10.1); Carbon Dioxide 29.9 mMol/L (20.0-31.0); Chloride 101 mMol/L (98-107); Creatinine (Component) 1.0 mg/dL (0.6-1.3); Estimated Creatinine Clearance 128.8 mL/min (>60); Globulin 2.6 gm/dL (2.3-3.5); Glucose 165 mg/dL (74-106); Lipase 383 U/L (12-53); Osmolality,Calculated 283 (275-295); Potassium 4.3 mMol/L (3.4-5.1); Sodium 140 mMol/L (136-145); Total Protein 7.7 gm/dL (5.7-8.2); Triglycerides 256 mg/dL (30-150); eGFR > 60 See Note
[2025-09-03] MEDS: HYDROmorphone INJ 2 MG/ML VIAL 1 MG IVP ×5 (02:38→12:54)
--- NOTE | 2025-09-03 03:32 | PD.EDABDPN ---
ED Abdominal Pain RME/HPI General Chief Complaint: Abdominal Pain Stated complaint: PANCREATITIS Time seen by provider: 09/03/25 02:46 Arrival date/time: 09/03/25 01:16 RME / HPI RME / HPI narrative: 09/03/25 01:16 30M with history of drug/alcohol use causing recurrent pancreatitis presents to ED with similar symptoms that started yesterday including upper ab pain. Dr. 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 Pain has been constant and escalated tonight. Pain does radiate to his back. No frequency, urgency, or dysuria. No fever or chills. Patient had taken leftover meds from previous episode with minimal response. PSH includes recurrent pancreatitis. PSH noncontributory. Occasional marijuana use, no alcohol use. NKA. Related Data Home Medications ?Medication ?Instructions ?Recorded ?Confirmed No Known Home Medications 01/26/25 01/26/25 Allergies Allergy/AdvReac Type Severity Reaction Status Date / Time No Known Allergies Allergy Verified 09/03/25 01:16 Review of Systems Review of Systems Systems Reviewed: All systems reviewed, normal except as documented Past Medical History Past Medical History NEUROLOGIC: Negative Neurological Disorders CARDIAC: Negative Cardiac Disorders or Congestive Heart Failure RESPIRATORY: Negative Chronic Obstructive Pulmonary Disease (COPD) or Asthma GASTROINTESTINAL: Positive Gastrointestinal Disorders and Pancreatitis GENITOURINARY: Negative Genitourinary Disorders or Renal Disease MUSCULOSKELETAL: Negative Musculoskeletal Disorders ENDOCRINE: Negative Endocrine Disorders, Diabetes Mellitus Type 1 or Diabetes Mellitus Type 2 HEMATOLOGIC: Negative Blood Disorders or Sickle Cell Disease PSYCHO/SOCIAL: Positive Recreational Drug Use OTHER HISTORY: Positive Hospitalization; Negative Autoimmune Disease, Down Syndrome, Developmental Delay, Shingles, Falls, Blood Transfusions, Anesthesia Reactions, Chicken Pox or Cancer Family History FAMILY HISTORY: Positive Family Gastrointestinal Problems; Negative Family Respiratory Disorders or Family Cardiac Disorders Social History SMOKING STATUS: Never smoker SECOND HAND EXPOSURE: No SUBSTANCE USE: marijuana and crack/cocaine (former) ED Exam Narrative Physical exam: GENERAL APPEARANCE: alert and oriented x 4, nontoxic, complains of diffuse abdominal pain that's 4/10 intensity, no acute distress VITALS: All vitals were reviewed and the pulse ox is 97% on room air, which is normal according to my interpretation. HEENT: Normocephalic, atraumatic; pupils equal, round, reactive to light; EOMI; mucous membranes pink, moist; oropharynx clear NECK: Supple LUNGS: CTABL; no wheezes, no rales, no rhonchi HEART: Regular rate, regular rhythm; normal S1, S2; no murmurs ABDOMEN: non distended; soft, mild epigastric/LUQ tenderness, no gross peritoneal findings BACK: no CVA tenderness EXTREMITIES: atraumatic; no edema NEUROLOGIC: awake; alert and oriented x4; cranial nerves II-XII grossly intact; no focal sensory or motor deficits PSYCHIATRIC: appropriate mood and affect SKIN: warm, dry, normal color; no rashes Course Quality Measures none Orders Category Date Time Status Admit to Inpatient Status Routine Admission 09/03/25 05:27 Active Patient Condition Routine Admission 09/03/25 05:27 Ordered Activity as Tolerated Routine Care 09/03/25 05:28 Ordered Insert IV NOW Care 09/03/25 01:43 Active NPO NOW Care 09/03/25 05:29 Active Notify provider NEEDED Care 09/03/25 05:27 Active Obtain weight X1 Care 09/03/25 05:27 Active Diet NPO (NOW) Diet 09/03/25 05:[address] abdomen pelvis wo con Stat Exams 09/03/25 04:44 Taken US gall bladder Stat Exams 09/03/25 01:43 Taken Alcohol, Blood Medical Stat Lab 09/03/25 01:51 Completed CBC AM DRAW Lab 09/04/25 05:00 Ordered CBC AM DRAW Lab 09/05/25 05:00 Ordered CBC AM DRAW Lab 09/06/25 05:00 Ordered CBC Stat Lab 09/03/25 01:51 Completed CMP [Comprehensive Metabolic Panel] Stat Lab 09/03/25 01:51 Completed Comprehensive Metabolic Panel AM DRAW Lab 09/04/25 05:00 Ordered Comprehensive Metabolic Panel AM DRAW Lab 09/05/25 05:00 Ordered Comprehensive Metabolic Panel AM DRAW Lab 09/06/25 05:00 Ordered Hemoglobin A1C [Glycohemoglobin w (eAG)] Routine Lab 09/03/25 05:28 Ordered Lipase Stat Lab 09/03/25 01:51 Completed Magnesium Routine Lab 09/03/25 05:32 Ordered Phosphorous Routine Lab 09/04/25 05:32 Ordered Triglycerides Stat Lab 09/03/25 01:51 Completed Acetaminophen Tab [Tylenol Tab] Med 09/03/25 05:29 Ordered 650 mg PO Q6H PRN HYDROmorphone INJ [Dilaudid Inj] Med 09/03/25 04:00 Discontinued 0.5 mg IVP X1 ONE HYDROmorphone INJ [Dilaudid Inj] Med 09/03/25 05:29 Ordered 1 mg IVP Q2H PRN HYDROmorphone INJ [Dilaudid Inj] Med 09/03/25 02:33 Discontinued 1 mg IVP X1 ONE Heparin Inj Med 09/03/25 06:00 Ordered 5,000 unit SC Q8HR Midazolam Inj [Versed Inj] Med 09/03/25 05:02 Discontinued 2 mg IM X1 ONE Midazolam Inj [Versed Inj] Med 09/03/25 05:17 Discontinued 2 mg IVP X1 ONE Morphine* Inj Med 09/03/25 01:43 Discontinued 4 mg IV X1 ONE Ondansetron Inj [Zofran Inj] Med 09/03/25 05:29 Ordered 4 mg IVP Q6H PRN Ondansetron Inj [Zofran Inj] Med 09/03/25 01:43 Discontinued 4 mg IVP X1 ONE Ringers Lactated 1000 ml [Lactated Ringers] 1,000 ml Med 09/03/25 07:00 Ordered IV 250 mls/hr Ringers Lactated 1000 ml [Lactated Ringers] 1,000 ml Med 09/03/25 01:43 Discontinued IV 999 mls/hr Ringers Lactated 1000 ml [Lactated Ringers] 1,000 ml Med 09/03/25 03:44 Discontinued IV 999 mls/hr Ringers Lactated 1000 ml [Lactated Ringers] 1,000 ml Med 09/03/25 05:27 Ordered IV 999 mls/hr Code Status Routine Oth 09/03/25 05:27 Ordered Vital Signs Vital signs: Vital Signs Temperature 97.9 F 09/03/25 01:36 Pulse Rate 89 09/03/25 01:36 Respiratory Rate 22 H 09/03/25 01:36 Blood Pressure 145/84 H 09/03/25 01:36 Pulse Oximetry (%) 99 09/03/25 01:36 Oxygen Delivery Method Room Air 09/03/25 01:36 Abdominal Pain [facility] Narrative [facility] Narrative:: Scribe Attestation: 09/03/25 - Jose, Analy Kohli, am scribing for and in the presence of Dr. Rodriguez. 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 Pain has been constant and escalated tonight. Please see PE findings. Lab markers demonstrate normal WBC count, mild hemoconcentration, normal Plt count, no left shift or bandemia. Chemistries are unremarkable although mild transaminase elevation noted. Of note, triglycerides at 256 and Lipase 383. Alcohol is negative. Patient placed on journeyman carpenter, IV established, and was aggressively hydrated. Patient required incremental doses of narcotic analgesics/anti-emetics with [id number] relief. Gallbladder US was performed and is negative. On serial evaluation, patient reports worsening pain and will be given benzodiazepines. Will obtain CT abdomen pelvis. Patient remained hemodynamically stable throughout ED course. Hospitalist consulted for admission for bowel rest, IV fluids, and pain control. Patient data External records reviewed:: [facility] previous records (Per chart review, patient was admitted here on 02/14/25 for pancreatitis.) Clinical information provided by:: patient Social determinants that could affect healthcare access:: substance use Patient has the following chronic illnesses:: none How is presenting disease/condition affected by chronic disease/condition?: no chronic disease Evaluation data The following diagnostics were reviewed and interpreted by me:: lab results and radiology exam(s) Lab and/or radiology exams considered but not ordered:: none Interpretation Summary: Right upper quadrant abdominal ultrasound with Doppler and wave Doppler spectral analysis. September 03, 2025 0236 hours? ? Clinical history:?Epigastric pain; h/o pancreatitis. ? Technique:?Grayscale and color flow images of the right upper quadrant are provided. Hepatic and portal veins were also imaged with color flow images.? Comparison:?No prior study is available for comparison. ? Findings: The liver demonstrates a heterogenous echogenicity. No intrahepatic biliary ductal dilatation. No gallbladder calculus, wall thickening or pericholecystic fluid is demonstrated. The common bile duct is normal in caliber at 0.2 cm. The pancreas was not visualized. The portal vein is patent with hepatopetal flow and normal wave Doppler spectral analysis. ? Impression: Unremarkable right upper quadrant ultrasound examination. Heterogenous liver, consider further evaluation to assess for liver disease. This report has been electronically signed by: Ronald Avila MD. Medications / Prescriptions Medications or Prescriptions considered but not ordered:: none Medication administrations:: Medication Administration History Acetaminophen (Acetaminophen 325 Mg Tablet) 650 mg PO Q6H PRN PRN Reason: PAIN OR FEVER > 100.4 Stop: 10/03/25 05:28 Heparin Sodium (Porcine) (Heparin Sod Inj 5000 Unit/Ml Vial) 5,000 unit SC Q8HR CARO Stop: 09/17/25 05:59 Hydromorphone HCl (Hydromorphone Inj 2 Mg/Ml Vial) 1 mg IVP Q2H PRN PRN Reason: PAIN SCALE 7-10 (Severe Stop: 09/08/25 05:28 Lactated Ringer's (Lactated Ringers) 1,000 mls @ 999 mls/hr IV .Q1H1M ONE Stop: 09/03/25 06:27 Lactated Ringer's (Lactated Ringers) 1,000 mls @ 250 mls/hr IV .Q4H CARO Stop: 10/03/25 06:59 Ondansetron HCl (Ondansetron Inj 2 Mg/Ml Inj 2 Ml) 4 mg IVP Q6H PRN; Protocol PRN Reason: NAUSEA OR VOMITING Stop: 10/03/25 05:28 Discontinued Medications Hydromorphone HCl (Hydromorphone Inj 2 Mg/Ml Vial) 1 mg IVP X1 ONE Stop: 09/03/25 02:34 Last Admin: 09/03/25 02:38 Dose: 1 mg Documented By: JAKE Hydromorphone HCl (Hydromorphone Inj 2 Mg/Ml Vial) 0.5 mg IVP X1 ONE Stop: 09/03/25 04:01 Last Admin: 09/03/25 04:13 Dose: 0.5 mg Documented By: JAKE Lactated Ringer's (Lactated Ringers) 1,000 mls @ 999 mls/hr IV .Q1H1M ONE Stop: 09/03/25 02:43 Last Infusion: 09/03/25 03:27 Dose: Infused Documented By: Admin: 09/03/25 02:04 Dose: 999 mls/hr Documented By: JAKE Lactated Ringer's (Lactated Ringers) 1,000 mls @ 999 mls/hr IV .Q1H1M ONE Stop: 09/03/25 04:44 Last Infusion: 09/03/25 05:15 Dose: Infused Documented By: Admin: 09/03/25 04:14 Dose: 999 mls/hr Documented By: JAKE Midazolam HCl (Midazolam Inj 1 Mg/Ml Vial 2 Ml) 2 mg IM X1 ONE Stop: 09/03/25 05:03 Last Admin: 09/03/25 05:18 Dose: Not Given Documented By: DT Non-Admin Reason: Cancelled by Provider Midazolam HCl (Midazolam Inj 1 Mg/Ml Vial 2 Ml) 2 mg IVP X1 ONE Stop: 09/03/25 05:18 Last Admin: 09/03/25 05:26 Dose: 2 mg Documented By: SIENA Morphine Sulfate (Morphine Sulf Inj 4 Mg/Ml Vial) 4 mg IV X1 ONE Stop: 09/03/25 01:44 Last Admin: 09/03/25 02:04 Dose: 4 mg Documented By: JAKE Ondansetron HCl (Ondansetron Inj 2 Mg/Ml Inj 2 Ml) 4 mg IVP X1 ONE; Protocol Stop: 09/03/25 01:44 Last Admin: 09/03/25 02:04 Dose: 4 mg Documented By: JAKE see above Consultations Consultation(s) initiated? (list below): Yes Diagnosis Differential diagnosis abdominal pain: abdominal pain, constipation, diverticulitis, gastroenteritis and pancreatitis Most likely diagnosis given after review of the tests above:: see clinical impression below Admission Indicated Admission indicated?: indicated Admission Request Was there a request for admission?: Yes Admission Attestation Admission request attestation: Discussed case with [] from Hospitalist service regarding admission. Discussed patients ED course, exam findings, labs, and radiology results. The Hospitalist [agrees,declines] to accept the patient for admission. Disposition Plan Disposition Plan: Admit Discharge Plan Plan Patient Disposition: Admit Acute Care w/in Hospital Prescriptions/Referrals Prescriptions/Med Rec: No Action No Known Home Medications Referrals: No Primary/Family,Physician [Primary Care Provider] - In 1 week Problem List Clinical Impression: Acute pancreatitis Patient/Caregiver Discharge Instructions Print Language: Mosotho Stand Alone Forms: [facility]le Award Info., Patient Portal Info Letter
[2025-09-03] MEDS: HYDROmorphone INJ 2 MG/ML VIAL 0.5 MG IVP (04:13)
--- NOTE | 2025-09-03 04:39 | PRELIM_ITS ---
Right upper quadrant abdominal ultrasound with Doppler and wave Doppler spectral analysis. September 03, 2025 0236 hours Clinical history: Epigastric pain; h/o pancreatitis. Technique: Grayscale and color flow images of the right upper quadrant are provided. Hepatic and portal veins were also imaged with color flow images. Comparison: No prior study is available for comparison. Findings: The liver demonstrates a heterogenous echogenicity. No intrahepatic biliary ductal dilatation. No gallbladder calculus, wall thickening or pericholecystic fluid is demonstrated. The common bile duct is normal in caliber at 0.2 cm. The pancreas was not visualized. The portal vein is patent with hepatopetal flow and normal wave Doppler spectral analysis. Impression: Unremarkable right upper quadrant ultrasound examination. Heterogenous liver, consider further evaluation to assess for liver disease. Report Electronically Signed By: Ronald Avila 09/03/2025 4:39:22 AM [EST]
--- NOTE | 2025-09-03 04:44 | XR_ITS ---
Examination: CT abdomen and pelvis without contrast. Coronal 3-D reconstructions. Sagittal 2-D reconstructions. Date and time of exam: September 03, 2025, 0509 hours INDICATIONS: Abdominal pain beginning 8 hours ago, history acute pancreatitis January 26, 2025 CTDI: vol (mGy): 9.63 DLP: (mGycm): 606 Technique: Axial images of the abdomen have been obtained, 3 mm slice thickness Intravenous contrast material has not been administered. Low dose protocols were performed. One or more of the following dose reduction techniques were used; automated exposure control, adjustment of the mA and/or KV according to patient size, use of iterative reconstruction technique. Findings: Diffuse fatty infiltration throughout the liver Spleen is nonenlarged. No definite gallstones Acute pancreatitis, edema surrounding the entire pancreas no pseudocyst Normal adrenal glands No renal or ureteral calculi, no hydronephrosis Aorta normal size Small lymph nodes in the right lower mesentery No bowel obstruction No diverticulitis Contracted urinary bladder No prostatomegaly No pericecal inflammatory change The Tanner structures are intact IMPRESSION: Acute pancreatitis, negative for pseudocyst
[2025-09-03] MEDS: MIDAZOLAM INJ 1 MG/ML VIAL 2 ML 2 MG IVP (05:26)
--- NOTE | 2025-09-03 05:35 | ESHP_ITS ---
<Statement entered by Cristiane Parker MD - 09/03/25 06:39> Note reviewed, I agree with most of its contents and agree with the patient's care as documented by Dr. Wilkins. Mr. Chaves is 30 yr male with PMH of recurrent acute pancreatitis episodes. Patient has endorsed recurrent episodes since the age of 20 stating he has had around a total of 15. Initially most likely cause of his episodes were due to alcohol intake however now endorses sobriety of past 10 years. He denies any episodes of vomiting, diarrhea, fever, chills. Does endorse severe epigastric pain 10/10 radiating to the back. Patient is able to recognize symptoms and stated that there similar to past episodes. He has not yet followed up with GI specialist for evaluation of recurrent episodes. Lipase 383, Br 1.2, AST 115, ALT 213, Tags 256. Hemoglobin 17, hematocrit 48, MCV 88, sodium 140, potassium 4.3, A1c 6.9, ethyl alcohol level undetectable. Gallbladder ultrasound negative for any gallstones or CBD dilation. CT scan abdomen pelvis is pending. Admit patient for acute pancreatitis with IV fluids, n.p.o., IV Dilaudid 1 mg every 2 hours as needed for pain. The patient's management plan was discussed with my attending physician Dr. Wade. 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 The pain has been constant since onset and has intensified this evening. He describes the pain as radiating to the back. He reports mild nausea without vomiting and decreased appetite since the pain began. He denies fever, chills, chest pain, shortness of breath, urinary frequency, urgency, or dysuria. No recent alcohol use, trauma, or new medications. Bowel movements have been normal without diarrhea, constipation, or melena. The patient reports approximately 15 prior episodes of pancreatitis over the past 10 years. No known history of autoimmune conditions and no history of steroid use. ED course: Initial vitals include T97.9, BP 145/84, HR 89, O2 sat 99% on room air. CBC showed hemoglobin 17.1. CMP showed sodium 140, potassium 4.3, creatinine 1.1, AST 115, ALT 213, T. bili 1.2, triglyceride 256, lipase 383. Alcohol level negative. Gallbladder ultrasound did not show any stones. In ED patient received 2 L of lactated Ringer's, Dilaudid 1.5 mg and morphine 4 mg. Past medical history: As stated above. Allergies: NKDA Family history: Noncontributory. Social history: No alcohol use for past 8 years, no smoking, occasional marijuana use. Patient admitted for acute on chronic pancreatitis. Review of Systems Review of Systems Narrative Review of Systems: All systems reviewed negative unless stated otherwise above. Exam Vital Signs Temp Pulse Resp BP Pulse Ox O2 Del Method 98.0 F 90 19 137/97 H 95 Room Air 09/03/25 03:35 09/03/25 03:35 09/03/25 03:35 09/03/25 03:35 09/03/25 03:35 09/03/25 03:35 Narrative Exam General: AOx3, in moderate distress, able to speak full sentences, Persian speaking HEENT: NC/AT, mucous membranes moist, bilateral sclera anicteric Cardiovascular: regular rate and rhythm, S1/S2 present, no murmurs appreciated Pulmonary: clear to auscultation bilaterally, no rales/rhonchi/wheezes Abdominal: soft, moderate tenderness to epigastric region, non-distended, no rebound/guarding, normal bowel sounds present Musculoskeletal: normal ROM, no peripheral edema Skin: warm and dry, intact, no rashes, Neuro: CN II-XII intact, no focal deficits Results: Labs 09/03/25 01:51 09/03/25 01:51 Labs: Short CBC 09/03/25 Range/Units 01:51 WBC 10.6 (3.8-10.6) Thou/mm3 Hgb 17.1 H (13.5-16.0) g/dL Hct 48.2 (41.0-53.0) % Plt Count 257 (140-440) Thou/mm3 BMP 09/03/25 01:51 Sodium 140 Potassium 4.3 Chloride 101 Carbon Dioxide 29.9 BUN 14 Creatinine 1.0 Glucose 165 H Calcium 9.5 Liver Function 09/03/25 Range/Units 01:51 Total Bilirubin 1.2 (0.3-1.2) mg/dL AST 115 H (0-34) U/L ALT 213 H (10-49) U/L Alkaline Phosphatase 89 (46-116) U/L Albumin 5.1 H (3.5-5.0) gm/dL Quality Measures Quality Measures VTE prophylaxis Medications Home Medications and Allergies Home Medications ?Medication ?Instructions ?Recorded ?Confirmed ?Type No Known Home Medications 01/26/25 0404/16 History Allergies Allergy/AdvReac Type Severity Reaction Status Date / Time No Known Allergies Allergy Verified 09/03/25 01:16 Visit Medications Acetaminophen (Acetaminophen 325 Mg Tablet) 650 mg PO Q6H PRN PRN Reason: PAIN OR FEVER > 100.4 Stop: 10/03/25 05:28 Heparin Sodium (Porcine) (Heparin Sod Inj 5000 Unit/Ml Vial) 5,000 unit SC Q8HR CARO Stop: 09/17/25 05:59 Hydromorphone HCl (Hydromorphone Inj 2 Mg/Ml Vial) 1 mg IVP Q2H PRN PRN Reason: PAIN SCALE 7-10 (Severe Stop: 09/08/25 05:28 Lactated Ringer's (Lactated Ringers) 1,000 mls @ 999 mls/hr IV .Q1H1M ONE Stop: 09/03/25 06:27 Lactated Ringer's (Lactated Ringers) 1,000 mls @ 250 mls/hr IV .Q4H CARO Stop: 10/03/25 06:44 Ondansetron HCl (Ondansetron Inj 2 Mg/Ml Inj 2 Ml) 4 mg IVP Q6H PRN; Protocol PRN Reason: NAUSEA OR VOMITING Stop: 10/03/25 05:28 Discontinued Medications Hydromorphone HCl (Hydromorphone Inj 2 Mg/Ml Vial) 1 mg IVP X1 ONE Stop: 09/03/25 02:34 Last Admin: 09/03/25 02:38 Dose: 1 mg Hydromorphone HCl (Hydromorphone Inj 2 Mg/Ml Vial) 0.5 mg IVP X1 ONE Stop: 09/03/25 04:01 Last Admin: 09/03/25 04:13 Dose: 0.5 mg Lactated Ringer's (Lactated Ringers) 1,000 mls @ 999 mls/hr IV .Q1H1M ONE Stop: 09/03/25 02:43 Last Infusion: 09/03/25 03:27 Dose: Infused Lactated Ringer's (Lactated Ringers) 1,000 mls @ 999 mls/hr IV .Q1H1M ONE Stop: 09/03/25 04:44 Last Infusion: 09/03/25 05:15 Dose: Infused Lactated Ringer's (Lactated Ringers) 1,000 mls @ 250 mls/hr IV .Q4H CARO Stop: 10/03/25 06:59 Midazolam HCl (Midazolam Inj 1 Mg/Ml Vial 2 Ml) 2 mg IM X1 ONE Stop: 09/03/25 05:03 Last Admin: 09/03/25 05:18 Dose: Not Given Midazolam HCl (Midazolam Inj 1 Mg/Ml Vial 2 Ml) 2 mg IVP X1 ONE Stop: 09/03/25 05:18 Last Admin: 09/03/25 05:26 Dose: 2 mg Morphine Sulfate (Morphine Sulf Inj 4 Mg/Ml Vial) 4 mg IV X1 ONE Stop: 09/03/25 01:44 Last Admin: 09/03/25 02:04 Dose: 4 mg Ondansetron HCl (Ondansetron Inj 2 Mg/Ml Inj 2 Ml) 4 mg IVP X1 ONE; Protocol Stop: 09/03/25 01:44 Last Admin: 09/03/25 02:04 Dose: 4 mg Assessment & Plan Plan 30-year-old male with a history of alcohol-induced pancreatitis, 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 #Acute on chronic pancreatitis Causes for pancreartitis: Gallstones, EtOH, Autoimmune, Hypercalcemia, Hypertriglyceridemia , Idiopathic Hx of prev pancreatitis (at leat 15 since last 10 years), with most recent being in 02/14 Patient failed to follow up outpatient for further evaluation of pancreatitis etiology No known hx of autoimmune conditions and no hx of steroid use. Abdo pain epigastric with radiation to back Lipase on admission 383 Gallbladder ultrasound did not show any stones. Ca 9.5 EtOH neg Recieved 2L IVF in ED Plan - NPO - LR 1L bolus, followed by LR 250 cc/hr - Dilaudid 1mg IV q2h PRN - Zofran PRN - Consider WANDER panel - F/U CT abdo #New onset Diabetes #Obesity A1c 6.9 Likely in setting of chronic pancreatitis Consider DM antibodies workup outpatient. Low carb diet Start patient on insulin sliding scale Advise regular exercise and healthy diet Diabetic education #Hypertension Likely in setting of pain Monitor vitals Antihypertensive for SBP>180 #Erythrocytosis - F/U on daily labs Health Maintenance: Diet: NPO GI prophylaxis: none DVT prophylaxis: Heparin 5000u SC q8h Antibiotics: none CODE STATUS: FULL Disposition: [facility] Case discussed with my attending Dr. Wade, and senior resident, Dr. Elena Wilkins MD PGY-1 Attending Provider Attestation/Addendum After examination of the patient and review of the clinical data I feel that this patient needs admission to the hospital for further treatment/evaluation. Plan of care discussed with patient and is in agreement. I Nadia Wade MD, attest that I was physically present for varghese portions of evaluation, and examined patient, labs and imagings and plan of care were discussed with IM residents team, and I agree with the findings and plans documented above.
--- NOTE | 2025-09-03 05:54 | PRELIM_ITS ---
CT abdomen and pelvis without intravenous contrast (axial sections with sagittal and coronal reformats) September 03, 2025 0509 hours Clinical History: Recurrent pancreatitis. Comparison: Compared with the prior study dated January 26, 2025. Findings: The lung bases are clear. Fatty infiltration of the liver is noted. The head, uncinate process and body of the pancreas are edematous with mild peripancreatic fat stranding. There is a trace amount of peripancreatic fluid. Fatty infiltration of the liver is noted. The gallbladder, spleen, kidneys and adrenals are unremarkable on this noncontrast study. No evidence of bowel obstruction. The appendix is within normal limits (images [id number]). A moderate amount of fecal material is present in the colon. There is no mesenteric or retroperitoneal adenopathy. The urinary bladder is incompletely distended . There is no free air. The osseous structures are unremarkable. Impression: Acute pancreatitis. No drainable peripancreatic fluid collection. Recommend clinical and laboratory correlation. Fatty liver. Report Electronically Signed By: Citlaly Bran 09/03/2025 5:53:39 AM [EST]
[2025-09-03] MEDS: RINGERS LACTATED 1000 ML 1,000 ML 250 ML IV ×5 (06:01→21:08)
[2025-09-03 06:22] LABS: Glucose Estimated Average 151 mg/dL (80-131); Hemoglobin A1C 6.9 % Hgb (4.8-6.0)
[2025-09-03 06:30] LABS: Magnesium 1.4 mg/dL (1.6-2.6)
--- NOTE | 2025-09-03 08:55 | ESPR_ITS ---
Documentation for date of: 09/03/25 Subjective Subjective Interval history: Patient admitted overnight. Mildly hypertensive, most likely 2/2 pain. Epigastric pain /10 after dilaudid 1 mg IV, down from 07/02. Reports no EtOH beverages in past 8-10 years. Exam Vital Signs Temp Pulse Resp BP Pulse Ox O2 Del Method O2 Flow Rate 97.3 F 79 17 142/94 H 96 Room Air 2 09/03/25 08:00 09/03/25 08:00 09/03/25 08:00 09/03/25 08:00 09/03/25 08:00 09/03/25 08:00 09/03/25 05:39 Narrative Exam General: No acute distress, well nourished Eye: PERRL, EOMI, normal conjunctiva, no scleral icterus HENT: Normocephalic, atraumatic, normal hearing, moist oral mucosa Neck: Supple, non-tender, no JVD, no lymphadenopathy Lungs: Clear to auscultation bilaterally, non-labored respirations, symmetric chest rise, no use of accessory muscles Heart: Normal S1 and S2, no S3 or S4 appreciated. Normal rate and regular rhythm, no murmurs, rubs gallops, or edema. Peripheral pulses intact bilaterally, capillary refill brisk distally Abdomen: Soft, TTP epigastric region, non-distended, normal bowel sounds. No guarding or rebound tenderness. Musculoskeletal: Normal range of motion and strength, no tenderness or swelling Skin: Skin is warm, dry, no rashes or lesions. Neurologic: Alert, awake and oriented x3. CN II-XII grossly intact. No focal neuro deficits. No signs of meningeal irritation noted. Psychiatric: Cooperative, appropriate mood and affect Objective Labs 09/03/25 01:51 09/03/25 01:51 Labs: Laboratory Results - last 24 hr 09/03/25 09/03/25 01:51 06:07 WBC 10.6 RBC 5.49 Hgb 17.1 H Hct 48.2 MCV 88 MCH 31.1 MCHC 35.5 RDW Std Deviation 39.3 Plt Count 257 Neut % (Auto) 55 Lymph % (Auto) 34 [place] % (Auto) 6 Eos % (Auto) 5 Baso % (Auto) 1 Neut # (Auto) 5.8 Lymph # (Auto) 3.6 [place] # (Auto) 0.6 Eos # (Auto) 0.5 Baso # (Auto) 0.1 Immature Gran # (Auto) 0.02 H Absolute Nucleated RBC 0.00 Immature Gran % 0 Nucleated RBC % 0 Sodium 140 Potassium 4.3 Chloride 101 Carbon Dioxide 29.9 Anion Gap 9 BUN 14 Creatinine 1.0 Estim Creat Clear Calc 128.8 eGFR > 60 BUN/Creatinine Ratio [address] Glu mg/dL 151 H Hemoglobin A1c 6.9 H Calculated Osmolality 283 Calcium 9.5 Corrected Calcium 9.5 Magnesium 1.4 L Total Bilirubin 1.2 AST 115 H ALT 213 H Alkaline Phosphatase 89 Total Protein 7.7 Albumin 5.1 H Globulin 2.6 Albumin/Globulin Ratio 2.0 Triglycerides 256 H Lipase 383 H Ethyl Alcohol < 3.0 Quality Measures Quality Measures VTE prophylaxis Assessment & Plan Assessment Current Active Medications: Generic Name Dose Route Start Last Admin Trade Name Freq PRN Reason Stop Dose Admin Acetaminophen 650 mg 09/03/25 05:29 Acetaminophen 325 Mg Tablet PO 10/03/25 05:28 Q6H PRN PAIN OR FEVER > 100.4 Dextrose 25 ml 09/03/25 06:28 Dextrose 50%-Water Inj 50 Ml Syringe IV 10/03/25 06:27 Q15MIN PRN BG 50-70 responsive npo pt Dextrose 50 ml 09/03/25 06:28 Dextrose 50%-Water Inj 50 Ml Syringe IV 10/03/25 06:27 Q15MIN PRN BG <50 OR BG <70 & pt unresponsive Glucagon 1 mg 09/03/25 06:28 Glucagon Inj 1 Mg Vial IM Q15MIN PRN BG <70, and no IV access Heparin Sodium (Porcine) 5,000 unit 09/03/25 06:00 09/03/25 06:02 Heparin Sod Inj 5000 Unit/Ml Vial SC 09/17/25 05:59 Not Given Q8HR CARO Hydromorphone HCl 1 mg 09/03/25 05:29 09/03/25 08:50 Hydromorphone Inj 2 Mg/Ml Vial IVP 09/08/25 05:28 1 mg Q2H PRN Administration PAIN SCALE 7-10 (Severe Lactated Ringer's 1,000 mls @ 250 mls/hr 09/03/25 06:45 09/03/25 06:01 Lactated Ringers IV 10/03/25 06:44 250 mls/hr .Q4H CARO Administration Magnesium Sulfate 4 gm in 50 mls @ 12.5 mls/hr 09/03/25 08:52 Magnesium Sulfate Ivpb IV 09/03/25 12:51 X1 ONE Insulin Human Lispro 0 unit 09/03/25 12:00 Insulin Lispro (Admelog) 1 Unit/0.01 Ml Unit SC 10/03/25 11:59 Q6HR CARO Protocol Ondansetron HCl 4 mg 09/03/25 05:29 Ondansetron Inj 2 Mg/Ml Inj 2 Ml IVP 10/03/25 05:28 Q6H PRN NAUSEA OR VOMITING Protocol Plan Mr. 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 Admitted for acute on chronic pancreatitis. #Acute on chronic pancreatitis Pt has had chronic pancreatitis since age 20, initially 2/2 EtOH use Initial presentation: epigastric pain Lipase: 383 EtOH: <3, quit drinking 8-10 years ago Triglycerides: 256 AST 115, ALT 213, alk phos WNL, total bili 1.2 Gallstone US: no cholelithiasis, fatty liver infiltration CT a/p w/o: acute pancreatitis DDX: Gallstones, EtOH, Autoimmune, Hypercalcemia, Hypertriglyceridemia , Idiopathic Already received 3.25 L LR Plan: - Clear liquid diet - LR 250 mL/hr maintenance IVF - Tylenol 650 mg PO q6h, Oxycodone 5 PO q4h, Oxycodone 10 mg PO q4h, Dilaudid 2 mg IV q4h PRN - Zofran 4 mg IV q4h PRN - f/u outpatient GI for autoimmune causes of recurring pancreatitis #New onset Diabetes #Obesity A1c 6.9 (previous WNL in 03/2021) i/s/o chronic pancreatitis Consider DM antibodies workup outpatient Plan: - SSI q6h while NPO - Diabetic education - Can start metformin upon d/c - f/u PCP for further management #Hypertension i/s/o pain Plan: - CTM vitals #Erythrocytosis Most likely 2/2 hemoconcentraiton Plan: - CTM CBC daily Checklist Dispo: Pancreatitis mgmt Lines: PIV Diet: NPO Bowel Reg: n/a VTE ppx: heparin subQ GI ppx: n/a Pain mgmt: Tylenol 650 mg PO q6h, Oxycodone 5 PO q4h, Oxycodone 10 mg PO q4h, Dilaudid 2 mg IV q4h PRN Code status: Full Plan discussed with Dr. Bi Vizcaino and Dr. Juanpablo Chew MD PGY1 Attending Provider Attestation/Addendum I reviewed labs, imaging, EKG, home medications and prior available records. Face to face evaluation was performed by me. I have personally examined the patient and discussed assessment and plan with the IM team. I reviewed the resident note and agree with the plan with exceptions as below. Acute on chronic pancreatitis Diabetes mellitus, probably type II Grade 1 obesity IV fluids Management of nausea/vomiting as needed Management of pain as needed A1c 6.9 Started sliding scale insulin Metformin upon discharge Monitor fingersticks
[2025-09-03] MEDS: Magnesium Sulfate 4 GM Ivpb 4 GM/50 ML BAG IV (09:46)
[2025-09-03] MEDS: MORPHINE SULF INJ 4 MG/ML VIAL 2 MG IVP ×2 (10:30→17:55)
[2025-09-03] MEDS: HEPARIN SOD INJ 5000 UNIT/ML VIAL SC (14:41)
[2025-09-03] MEDS: HYDROmorphone INJ 2 MG/ML VIAL IVP ×2 (15:06→19:16)
--- NOTE | 2025-09-03 16:33 | PC.SS ---
Patient is alert/oriented. Patient was able to verify demographics. Patient is from home and resides with his children. Patient is independent with ADL's. No DME. Admitted for acute pancreatitis. PCP: Patient does not have a p.c.p. Pharmacy; [facility]. Patient discharge plan is to return home. Alt medical decision maker: Mother, Marielle Cano,
[2025-09-03] MEDS: KETOROLAC INJ 30 MG/ML VIAL IVP (21:03)
[2025-09-04] VITALS: BP 138/82; PULSE 87; RESP 17; TEMP 36.7; O2SAT 99
[2025-09-04] MEDS: HYDROmorphone INJ 2 MG/ML VIAL IVP ×5 (00:51→20:52)
[2025-09-04] MEDS: RINGERS LACTATED 1000 ML 1,000 ML 250 ML IV ×2 (00:55→06:09)
[2025-09-04] MEDS: KETOROLAC INJ 30 MG/ML VIAL IVP ×2 (03:31→09:34)
[2025-09-04] MEDS: ONDANSETRON INJ 2 MG/ML INJ 2 ML 4 MG IVP ×2 (03:32→20:51)
[2025-09-04 04:00] VITALS: BP 129/87; PULSE 72; RESP 18; TEMP 36.2; O2SAT 99
[2025-09-04 06:31] LABS: Basophils # (Auto) 0.0 Thou/mm3 (0.0-0.2); Basophils % (Auto) 0 % (0-2.5); Eosinophils # (Auto) 0.1 Thou/mm3 (0.0-0.5); Eosinophils % (Auto) 1 % (0-10); Hematocrit 43.8 % (41.0-53.0); Hemoglobin 15.7 g/dL (13.5-16.0); Immature Granulocytes Auto 0.05 Thou/mm3 (0.00-0.00); Lymphocytes # (Auto) 1.4 Thou/mm3 (1.0-4.8); Lymphocytes % (Auto) 11 % (10-50); Mean Corpuscular HGB Conc 35.8 g/dl (31.0-37.0); Mean Corpuscular Hemoglobin 31.4 pg (25.0-35.0); Mean Corpuscular Volume 88 fL (80-100); Monocytes # (Auto) 0.9 Thou/mm3 (0.0-0.8); Monocytes % (Auto) 7 % (0-12); Neutrophils # (Auto) 9.8 Thou/mm3 (1.8-7.7); Neutrophils % (Auto) 80 % (37-80); Nucleated Red Blood Cell # 0.00 Thou/mm3 (0.00-0.00); Nucleated Red Blood Cell % 0 /100 WBC (0); Platelet Count 195 Thou/mm3 (140-440); RDW Standard Deviation 39.0 fL (35.1-43.9); Red Blood Count 5.00 Miln/mm3 (4.50-5.90); White Blood Count 12.4 Thou/mm3 (3.8-10.6)
[2025-09-04 06:57] LABS: Alanine Aminotransferase 116 U/L (10-49); Albumin, Serum 4.4 gm/dL (3.5-5.0); Albumin/Globulin Ratio 2.2 (1.2-2.2); Alkaline Phosphatase 65 U/L (46-116); Anion Gap 9 (7-16); Aspartate Amino Transferase 46 U/L (0-34); BUN/Creatinine Ratio 9 Ratio (12-20); Bilirubin,Total 1.3 mg/dL (0.3-1.2); Blood Urea Nitrogen 7 mg/dL (9-23); Calcium 8.9 mg/dL (8.3-10.6); Calcium (Corrected) 8.9 mg/dL (8.5-10.1); Carbon Dioxide 29.9 mMol/L (20.0-31.0); Chloride 101 mMol/L (98-107); Creatinine (Component) 0.8 mg/dL (0.6-1.3); Estimated Creatinine Clearance 161.0 mL/min (>60); Globulin 2.0 gm/dL (2.3-3.5); Glucose 164 mg/dL (74-106); Osmolality,Calculated 281 (275-295); Phosphorous 3.5 mg/dL (2.4-5.1); Potassium 3.9 mMol/L (3.4-5.1); Sodium 140 mMol/L (136-145); Total Protein 6.4 gm/dL (5.7-8.2); eGFR > 60 See Note
[2025-09-04 08:00] VITALS: BP 128/84; BP 128/88; PULSE 67; PULSE 77; RESP 15; RESP 20; TEMP 36.7; O2SAT 93; O2SAT 95
--- NOTE | 2025-09-04 09:56 | PD.RESPRO ---
Documentation for date of: 09/04/25 Subjective Subjective Interval history: NAEO. Patient continues to have epigastric abdominal pain, 4-5/10 pain, states that he has not tried PO intake today. Exam Vital Signs Temp Pulse Resp BP Pulse Ox O2 Del Method O2 Flow Rate 98.1 F 77 20 128/88 H 93 L Room Air 2 09/04/25 08:00 09/04/25 08:00 09/04/25 08:00 09/04/25 08:00 09/04/25 08:00 09/04/25 08:00 09/04/25 04:00 Narrative Exam General: No acute distress, well nourished Eye: PERRL, EOMI, normal conjunctiva, no scleral icterus HENT: Normocephalic, atraumatic, normal hearing, moist oral mucosa Neck: Supple, non-tender, no JVD, no lymphadenopathy Lungs: Clear to auscultation bilaterally, non-labored respirations, symmetric chest rise, no use of accessory muscles Heart: Normal S1 and S2, no S3 or S4 appreciated. Normal rate and regular rhythm, no murmurs, rubs gallops, or edema. Peripheral pulses intact bilaterally, capillary refill brisk distally Abdomen: Soft, TTP epigastric region, non-distended, normal bowel sounds. No guarding or rebound tenderness. Musculoskeletal: Normal range of motion and strength, no tenderness or swelling Skin: Skin is warm, dry, no rashes or lesions. Neurologic: Alert, awake and oriented x3. CN II-XII grossly intact. No focal neuro deficits. No signs of meningeal irritation noted. Psychiatric: Cooperative, appropriate mood and affect Objective Labs 09/04/25 05:30 09/04/25 05:30 Labs: Laboratory Results - last 24 hr 09/04/25 05:30 WBC 12.4 H RBC 5.00 Hgb 15.7 Hct 43.8 MCV 88 MCH 31.4 MCHC 35.8 RDW Std Deviation 39.0 Plt Count 195 D Neut % (Auto) 80 Lymph % (Auto) 11 [place] % (Auto) 7 Eos % (Auto) 1 Baso % (Auto) 0 Neut # (Auto) 9.8 H Lymph # (Auto) 1.4 [place] # (Auto) 0.9 H Eos # (Auto) 0.1 Baso # (Auto) 0.0 Immature Gran # (Auto) 0.05 H Absolute Nucleated RBC 0.00 Immature Gran % 0 Nucleated RBC % 0 Sodium 140 Potassium 3.9 Chloride 101 Carbon Dioxide 29.9 Anion Gap 9 BUN 7 L Creatinine 0.8 Estim Creat Clear Calc 161.0 eGFR > 60 BUN/Creatinine Ratio 9 L Glucose 164 H Calculated Osmolality 281 Calcium 8.9 Corrected Calcium 8.9 Phosphorus 3.5 Total Bilirubin 1.3 H AST 46 H ALT 116 H Alkaline Phosphatase 65 D Total Protein 6.4 Albumin 4.4 D Globulin 2.0 L Albumin/Globulin Ratio 2.2 Quality Measures Quality Measures VTE prophylaxis Assessment & Plan Assessment Current Active Medications: Generic Name Dose Route Start Last Admin Trade Name Freq PRN Reason Stop Dose Admin Acetaminophen 650 mg 09/03/25 14:24 Acetaminophen 325 Mg Tablet PO 10/03/25 05:28 Q6H PRN PAIN 1-2 OR FEVER > 100.4 Dextrose 25 ml 09/03/25 06:28 Dextrose 50%-Water Inj 50 Ml Syringe IV 10/03/25 06:27 Q15MIN PRN BG 50-70 responsive npo pt Dextrose 50 ml 09/03/25 06:28 Dextrose 50%-Water Inj 50 Ml Syringe IV 10/03/25 06:27 Q15MIN PRN BG <50 OR BG <70 & pt unresponsive Glucagon 1 mg 09/03/25 06:28 Glucagon Inj 1 Mg Vial IM Q15MIN PRN BG <70, and no IV access Heparin Sodium (Porcine) 5,000 unit 09/03/25 06:00 09/04/25 06:15 Heparin Sod Inj 5000 Unit/Ml Vial SC 09/17/25 05:59 Not Given Q8HR CARO Hydromorphone HCl 2 mg 09/03/25 14:23 09/04/25 06:14 Hydromorphone Inj 2 Mg/Ml Vial IVP 09/08/25 09:56 2 mg Q4HR PRN Administration BREAKTHROUGH PAIN Protocol Lactated Ringer's 1,000 mls @ 250 mls/hr 09/03/25 06:45 09/04/25 06:09 Lactated Ringers IV 10/03/25 06:44 250 mls/hr .Q4H CARO Administration Insulin Human Lispro 0 unit 09/03/25 12:00 09/04/25 06:06 Insulin Lispro (Admelog) 1 Unit/0.01 Ml Unit SC 10/03/25 11:59 Not Given Q6HR CARO Protocol Ketorolac Tromethamine 15 mg 09/04/25 09:55 Ketorolac Inj 30 Mg/Ml Vial IVP 09/08/25 19:49 Q6HR PRN Breakthrough Pain Ondansetron HCl 4 mg 09/03/25 05:29 09/04/25 03:32 Ondansetron Inj 2 Mg/Ml Inj 2 Ml IVP 10/03/25 05:28 4 mg Q6H PRN Administration NAUSEA OR VOMITING Protocol Oxycodone/Acetaminophen 1 tab 09/03/25 14:22 09/04/25 08:41 Oxycodone/Apap 5/325 Tablet PO 09/08/25 14:21 1 tab Q4H PRN Administration pain 3-6 Oxycodone/Acetaminophen 2 tab 09/03/25 14:22 09/03/25 18:35 Oxycodone/Apap 5/325 Tablet PO 09/08/25 14:21 2 tab Q4H PRN Administration pain 7-10 Plan Mr. 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 Admitted for acute on chronic pancreatitis. #Acute on chronic pancreatitis Pt has had chronic pancreatitis since age 20, initially 2/2 EtOH use Initial presentation: epigastric pain Lipase: 383 EtOH: <3, quit drinking 8-10 years ago Triglycerides: 256 AST 115, ALT 213, alk phos WNL, total bili 1.2 Gallstone US: no cholelithiasis, fatty liver infiltration CT a/p w/o: acute pancreatitis Plan: - Clear liquid diet, advance as tolerated - LR 150 mL/hr maintenance IVF - Tylenol 650 mg PO q6h, Oxycodone 5 PO q4h, Oxycodone 10 mg PO q4h, Dilaudid 2 mg IV q4h PRN, Toradol 15 mg IV q6h PRN - Zofran 4 mg IV q4h PRN - f/u outpatient GI for autoimmune causes of recurring pancreatitis #New onset Diabetes #Obesity A1c 6.9 (previous WNL in 03/2021) i/s/o chronic pancreatitis Consider DM antibodies workup outpatient Plan: - SSI q6h while NPO - Diabetic education - Can start metformin upon d/c - f/u PCP for further management #Hypertension i/s/o pain Plan: - CTM vitals #Erythrocytosis Most likely 2/2 hemoconcentraiton Plan: - CTM CBC daily Checklist Dispo: Pancreatitis mgmt Lines: PIV Diet: Clears, advance as tolerated Bowel Reg: n/a VTE ppx: heparin subQ GI ppx: n/a Pain mgmt: Tylenol 650 mg PO q6h, Oxycodone 5 PO q4h, Oxycodone 10 mg PO q4h, Dilaudid 2 mg IV q4h PRN, Toradol 15 mg IV q6h Code status: Full Plan discussed with Dr. Bi Vizcaino and Dr. Juanpablo Chew MD PGY1 Attending Provider Attestation/Addendum I reviewed labs, imaging, EKG, home medications and prior available records. Face to face evaluation was performed by me. I have personally examined the patient and discussed assessment and plan with the IM team. I reviewed the resident note and agree with the plan with exceptions as below. Acute on chronic pancreatitis Diabetes mellitus, probably type II Grade 1 obesity IV fluids Management of nausea/vomiting as needed Management of pain as needed: He is on oral opiates, IV opiates, and IV Toradol as needed for pain management A1c 6.9 Started sliding scale insulin Metformin upon discharge Monitor fingersticks
[2025-09-04] MEDS: RINGERS LACTATED 1000 ML 1,000 ML 150 ML IV ×2 (10:52→19:25)
[2025-09-04 11:41] VITALS: BP 139/89; PULSE 88; RESP 20; TEMP 36.2; O2SAT 99
[2025-09-04] MEDS: KETOROLAC INJ 30 MG/ML VIAL 15 MG IVP ×2 (14:37→19:24)
[2025-09-04 16:00] VITALS: BP 126/80; PULSE 60; RESP 16; TEMP 37.2; O2SAT 97
[2025-09-04 20:00] VITALS: BP 150/85; PULSE 68; RESP 19; TEMP 36.7; O2SAT 97
[2025-09-05] VITALS (8 sets, daily range): BP systolic 119–152; BP diastolic 78–109; PULSE 54–166; RESP 18–21; TEMP 36.2–37.3; O2SAT 97–100
[2025-09-05] MEDS: HYDROmorphone INJ 2 MG/ML VIAL IVP (00:53)
[2025-09-05] MEDS: RINGERS LACTATED 1000 ML 1,000 ML 150 ML IV ×2 (02:06→09:47)
[2025-09-05] MEDS: KETOROLAC INJ 30 MG/ML VIAL 15 MG IVP (04:49)
[2025-09-05 06:25] LABS: Basophils # (Auto) 0.1 Thou/mm3 (0.0-0.2); Basophils % (Auto) 1 % (0-2.5); Eosinophils # (Auto) 0.3 Thou/mm3 (0.0-0.5); Eosinophils % (Auto) 3 % (0-10); Hematocrit 41.5 % (41.0-53.0); Hemoglobin 14.7 g/dL (13.5-16.0); Immature Granulocytes Auto 0.04 Thou/mm3 (0.00-0.00); Lymphocytes # (Auto) 2.6 Thou/mm3 (1.0-4.8); Lymphocytes % (Auto) 22 % (10-50); Mean Corpuscular HGB Conc 35.4 g/dl (31.0-37.0); Mean Corpuscular Hemoglobin 31.6 pg (25.0-35.0); Mean Corpuscular Volume 89 fL (80-100); Monocytes # (Auto) 1.1 Thou/mm3 (0.0-0.8); Monocytes % (Auto) 9 % (0-12); Neutrophils # (Auto) 8.0 Thou/mm3 (1.8-7.7); Neutrophils % (Auto) 66 % (37-80); Nucleated Red Blood Cell # 0.00 Thou/mm3 (0.00-0.00); Nucleated Red Blood Cell % 0 /100 WBC (0); Platelet Count 198 Thou/mm3 (140-440); RDW Standard Deviation 39.8 fL (35.1-43.9); Red Blood Count 4.65 Miln/mm3 (4.50-5.90); White Blood Count 12.0 Thou/mm3 (3.8-10.6)
[2025-09-05 06:42] LABS: Alanine Aminotransferase 83 U/L (10-49); Albumin, Serum 4.5 gm/dL (3.5-5.0); Albumin/Globulin Ratio 1.8 (1.2-2.2); Alkaline Phosphatase 68 U/L (46-116); Anion Gap 9 (7-16); Aspartate Amino Transferase 32 U/L (0-34); BUN/Creatinine Ratio 8 Ratio (12-20); Bilirubin,Total 1.3 mg/dL (0.3-1.2); Blood Urea Nitrogen 6 mg/dL (9-23); Calcium 9.8 mg/dL (8.3-10.6); Calcium (Corrected) 9.8 mg/dL (8.5-10.1); Carbon Dioxide 30.0 mMol/L (20.0-31.0); Chloride 100 mMol/L (98-107); Creatinine (Component) 0.8 mg/dL (0.6-1.3); Estimated Creatinine Clearance 161.0 mL/min (>60); Globulin 2.5 gm/dL (2.3-3.5); Glucose 114 mg/dL (74-106); Osmolality,Calculated 276 (275-295); Potassium 3.7 mMol/L (3.4-5.1); Sodium 139 mMol/L (136-145); Total Protein 7.0 gm/dL (5.7-8.2); eGFR > 60 See Note
--- NOTE | 2025-09-05 08:42 | PD.RESPRO ---
Documentation for date of: 09/05/25 Exam Vital Signs Temp Pulse Resp BP Pulse Ox O2 Del Method O2 Flow Rate 97.5 F 68 20 134/84 H 98 Room Air 2 09/05/25 07:43 09/05/25 07:43 09/05/25 07:43 09/05/25 07:43 09/05/25 07:43 09/05/25 07:43 09/05/25 04:00 Objective Labs 09/05/25 04:55 09/05/25 04:55 Labs: Laboratory Results - last 24 hr 09/05/25 04:55 WBC 12.0 H RBC 4.65 Hgb 14.7 Hct 41.5 MCV 89 MCH 31.6 MCHC 35.4 RDW Std Deviation 39.8 Plt Count 198 Neut % (Auto) 66 Lymph % (Auto) 22 [place] % (Auto) 9 Eos % (Auto) 3 Baso % (Auto) 1 Neut # (Auto) 8.0 H Lymph # (Auto) 2.6 [place] # (Auto) 1.1 H Eos # (Auto) 0.3 Baso # (Auto) 0.1 Immature Gran # (Auto) 0.04 H Absolute Nucleated RBC 0.00 Immature Gran % 0 Nucleated RBC % 0 Sodium 139 Potassium 3.7 Chloride 100 Carbon Dioxide 30.0 Anion Gap 9 BUN 6 L Creatinine 0.8 Estim Creat Clear Calc 161.0 eGFR > 60 BUN/Creatinine Ratio 8 L Glucose 114 H D Calculated Osmolality 276 Calcium 9.8 Corrected Calcium 9.8 Total Bilirubin 1.3 H AST 32 ALT 83 H Alkaline Phosphatase 68 Total Protein 7.0 Albumin 4.5 Globulin 2.5 Albumin/Globulin Ratio 1.8 Quality Measures Quality Measures VTE prophylaxis Assessment & Plan Assessment Current Active Medications: Generic Name Dose Route Start Last Admin Trade Name Freq PRN Reason Stop Dose Admin Acetaminophen 650 mg 09/03/25 14:24 Acetaminophen 325 Mg Tablet PO 10/03/25 05:28 Q6H PRN PAIN 1-2 OR FEVER > 100.4 Dextrose 25 ml 09/03/25 06:28 Dextrose 50%-Water Inj 50 Ml Syringe IV 10/03/25 06:27 Q15MIN PRN BG 50-70 responsive npo pt Dextrose 50 ml 09/03/25 06:28 Dextrose 50%-Water Inj 50 Ml Syringe IV 10/03/25 06:27 Q15MIN PRN BG <50 OR BG <70 & pt unresponsive Glucagon 1 mg 09/03/25 06:28 Glucagon Inj 1 Mg Vial IM Q15MIN PRN BG <70, and no IV access Heparin Sodium (Porcine) 5,000 unit 09/03/25 06:00 09/05/25 06:24 Heparin Sod Inj 5000 Unit/Ml Vial SC 09/17/25 05:59 Not Given Q8HR CARO Hydromorphone HCl 2 mg 09/03/25 14:23 09/05/25 00:53 Hydromorphone Inj 2 Mg/Ml Vial IVP 09/08/25 09:56 2 mg Q4HR PRN Administration BREAKTHROUGH PAIN Protocol Lactated Ringer's 1,000 mls @ 150 mls/hr 09/04/25 09:57 09/05/25 02:06 Lactated Ringers IV 10/04/25 09:56 150 mls/hr .Q6H40M CARO Administration Insulin Human Lispro 0 unit 09/03/25 12:00 09/05/25 06:24 Insulin Lispro (Admelog) 1 Unit/0.01 Ml Unit SC 10/03/25 11:59 Not Given Q6HR [facility] Protocol Ketorolac Tromethamine 15 mg 09/04/25 09:55 09/05/25 04:49 Ketorolac Inj 30 Mg/Ml Vial IVP 09/08/25 19:49 15 mg Q6HR PRN Administration Breakthrough Pain Ondansetron HCl 4 mg 09/03/25 05:29 09/04/25 20:51 Ondansetron Inj 2 Mg/Ml Inj 2 Ml IVP 10/03/25 05:28 4 mg Q6H PRN Administration NAUSEA OR VOMITING Protocol Oxycodone/Acetaminophen 1 tab 09/03/25 14:22 09/04/25 08:41 Oxycodone/Apap 5/325 Tablet PO 09/08/25 14:21 1 tab Q4H PRN Administration pain 3-6 Oxycodone/Acetaminophen 2 tab 09/03/25 14:22 09/05/25 06:28 Oxycodone/Apap 5/325 Tablet PO 09/08/25 14:21 2 tab Q4H PRN Administration pain 7-10
--- NOTE | 2025-09-05 09:55 | PD.RESDS ---
Planned Discharge Date 09/05/25 DS: Providers Provider Date of admission: 09/03/25 05:27 Primary care physician: Physician No Primary/Family Admitting Provider: Nadia Wade MD Attending Provider on Admission: Miguel Geronimo MD Consults: 09/03/25 06:32 Referral Registered Dietitian Routine Comment: Attending Provider on DC: Era Buchanan MD Discharging Provider: Era Buchanan MD Hospital Course Hospital Course Hospital course: NAEO. Patient continues to have epigastric abdominal pain, 4-5/10 pain, states that he has not tried PO intake today. Time Spent with Patient Time attestation: Total time spent providing and/or coordinating discharge services: Exam Vital Signs Temp Pulse Resp BP Pulse Ox O2 Del Method O2 Flow Rate 97.5 F 68 20 134/84 H 98 Room Air 2 09/05/25 07:43 09/05/25 07:43 09/05/25 07:43 09/05/25 07:43 09/05/25 07:43 09/05/25 07:43 09/05/25 04:00 Discharge Plan Prescriptions/Referrals Prescriptions/Med Rec: No Action No Known Home Medications Referrals: No Primary/Family,Physician [Primary Care Provider] Patient/Caregiver Discharge Instructions Print Language: Divehi
--- NOTE | 2025-09-05 11:12 | XR_ITS ---
EXAMINATION: Abdomen upright single view TECHNIQUE: Upright abdomen AP single view Date and time: September 05, 2025, 1150 hours INDICATIONS: Epigastric pain today. FINDINGS: Mild small bowel air distended loops in the upper abdomen Moderate stool throughout the colon No obstruction No free air Intact osseous structures IMPRESSION: Mild small bowel ileus
[2025-09-05] MEDS: HYDROmorphone INJ 2 MG/ML VIAL 1 MG IVP (11:16)
[2025-09-05] MEDS: KETOROLAC INJ 30 MG/ML VIAL IVP ×2 (12:57→20:16)
[2025-09-05] MEDS: RINGERS LACTATED 1000 ML 1,000 ML 200 ML IV ×3 (13:02→22:44)
[2025-09-05] MEDS: HYDROmorphone INJ 2 MG/ML VIAL 0.5 MG IVP ×3 (14:06→23:35)
[2025-09-05] MEDS: HEPARIN SOD INJ 5000 UNIT/ML VIAL SC (14:15)
[2025-09-05] MEDS: POLYETHYLENE GLYCOL 17 GM PACKET PO (14:15)
--- NOTE | 2025-09-05 16:00 | PD.RESPRO ---
Documentation for date of: 09/05/25 Subjective Subjective Interval history: patient seen and examined at bedside pt had eaten jello and some of the food from his clears breakfast tray pt subsequently had rapid response called for acute worsening of abdominal pain 08/01 pain resolved with dilaudid 1 mg x1 given. NPO given extreme pain with eating, with plan to advance as tolerated. significant stool burden on KUB, Exam Vital Signs Temp Pulse Resp BP Pulse Ox O2 Del Method O2 Flow Rate 99.1 F 70 18 145/80 H 98 Room Air 2 09/05/25 12:00 09/05/25 12:00 09/05/25 12:00 09/05/25 12:00 09/05/25 12:00 09/05/25 12:09/05/25 04:00 Narrative Exam General: No acute distress, well nourished, worried about pain. Eye: PERRL, EOMI, normal conjunctiva, no scleral icterus HENT: Normocephalic, atraumatic, normal hearing, moist oral mucosa Neck: Supple, non-tender, no JVD, no lymphadenopathy Lungs: Clear to auscultation bilaterally, non-labored respirations, symmetric chest rise, no use of accessory muscles Heart: Normal S1 and S2, no S3 or S4 appreciated. Normal rate and regular rhythm, no murmurs, rubs gallops, or edema. Peripheral pulses intact bilaterally, capillary refill brisk distally Abdomen: Soft, TTP epigastric region, non-distended, normal bowel sounds. No guarding or rebound tenderness. Musculoskeletal: Normal range of motion and strength, no tenderness or swelling Skin: Skin is warm, dry, no rashes or lesions. Neurologic: Alert, awake and oriented x3. CN II-XII grossly intact. No focal neuro deficits. No signs of meningeal irritation noted. Psychiatric: Cooperative, appropriate mood and affect Objective Labs 09/05/25 04:55 09/05/25 04:55 Labs: Laboratory Results - last 24 hr 09/05/25 04:55 WBC 12.0 H RBC 4.65 Hgb 14.7 Hct 41.5 MCV 89 MCH 31.6 MCHC 35.4 RDW Std Deviation 39.8 Plt Count 198 Neut % (Auto) 66 Lymph % (Auto) 22 [place] % (Auto) 9 Eos % (Auto) 3 Baso % (Auto) 1 Neut # (Auto) 8.0 H Lymph # (Auto) 2.6 [place] # (Auto) 1.1 H Eos # (Auto) 0.3 Baso # (Auto) 0.1 Immature Gran # (Auto) 0.04 H Absolute Nucleated RBC 0.00 Immature Gran % 0 Nucleated RBC % 0 Sodium 139 Potassium 3.7 Chloride 100 Carbon Dioxide 30.0 Anion Gap 9 BUN 6 L Creatinine 0.8 Estim Creat Clear Calc 161.0 eGFR > 60 BUN/Creatinine Ratio 8 L Glucose 114 H D Calculated Osmolality 276 Calcium 9.8 Corrected Calcium 9.8 Total Bilirubin 1.3 H AST 32 ALT 83 H Alkaline Phosphatase 68 Total Protein 7.0 Albumin 4.5 Globulin 2.5 Albumin/Globulin Ratio 1.8 Quality Measures Quality Measures VTE prophylaxis Assessment & Plan Assessment Current Active Medications: Generic Name Dose Route Start Last Admin Trade Name Freq PRN Reason Stop Dose Admin Dextrose 25 ml 09/03/25 06:28 Dextrose 50%-Water Inj 50 Ml Syringe IV 10/03/25 06:27 Q15MIN PRN BG 50-70 responsive npo pt Dextrose 50 ml 09/03/25 06:28 Dextrose 50%-Water Inj 50 Ml Syringe IV 10/03/25 06:27 Q15MIN PRN BG <50 OR BG <70 & pt unresponsive Glucagon 1 mg 09/03/25 06:28 Glucagon Inj 1 Mg Vial IM Q15MIN PRN BG <70, and no IV access Heparin Sodium (Porcine) 5,000 unit 09/03/25 06:00 09/05/25 14:15 Heparin Sod Inj 5000 Unit/Ml Vial SC 09/17/25 05:59 5,000 unit Q8HR CARO Administration Hydromorphone HCl 0.5 mg 09/05/25 11:12 09/05/25 14:06 Hydromorphone Inj 2 Mg/Ml Vial IVP 09/10/25 11:11 0.5 mg Q4HR PRN Administration BREAKTHROUGH PAIN (SEVERE) Lactated Ringer's 1,000 mls @ 200 mls/hr 09/05/25 11:16 09/05/25 13:02 Lactated Ringers IV 10/05/25 11:15 200 mls/hr .Q5H CARO Administration Acetaminophen 1,000 mg in 100 mls @ 250 mls/hr 09/05/25 15:58 Ofirmev Inj IV 09/06/25 12:23 Q6HR CARO Insulin Human Lispro 0 unit 09/03/25 12:00 09/05/25 13:01 Insulin Lispro (Admelog) 1 Unit/0.01 Ml Unit SC 10/03/25 11:59 Not Given Q6HR [facility] Protocol Ketorolac Tromethamine 30 mg 09/05/25 11:13 09/05/25 12:57 Ketorolac Inj 30 Mg/Ml Vial IVP 09/10/25 11:12 30 mg Q6HR PRN Administration PAIN SCALE 4-6 (Moderate Ondansetron HCl 4 mg 09/03/25 05:29 09/04/25 20:51 Ondansetron Inj 2 Mg/Ml Inj 2 Ml IVP 10/03/25 05:28 4 mg Q6H PRN Administration NAUSEA OR VOMITING Protocol Oxycodone/Acetaminophen 1 tab 09/05/25 15:55 Oxycodone/Apap 5/325 Tablet PO 09/10/25 15:54 Q6HR PRN PAIN SCALE 4-10(Mod-Sev Plan Mr. 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 Admitted for acute on chronic pancreatitis. #Acute on chronic pancreatitis Pt has had chronic pancreatitis since age 20, initially 2/2 EtOH use Initial presentation: epigastric pain Lipase: 383 EtOH: <3, quit drinking 8-10 years ago Triglycerides: 256 AST 115, ALT 213, alk phos WNL, total bili 1.2 Gallstone US: no cholelithiasis, fatty liver infiltration CT a/p w/o: acute pancreatitis patient advised that his pain will not be 0/10 while here and that a normal amount of pain is to be expected 09/05 rapid response called in the morning for severe abdominal pain, no rebound no guarding. responsive to dilaudid which pt requested. Plan: - NPO, advance as tolerated - LR 200 mL/hr maintenance IVF - Previously on: Tylenol 650 mg PO q6h, Oxycodone 5 PO q4h, Oxycodone 10 mg PO q4h, Dilaudid 2 mg IV q4h PRN, Toradol 15 mg IV q6h PRN - Pain regemin now: APAP IV q6hr scheduled, percocet for moderate pain 6-10, dilaudid .5 mg for severe breakthrough pain - Zofran 4 mg IV q4h PRN - f/u outpatient GI for autoimmune causes of recurring pancreatitis #New onset Diabetes #Obesity A1c 6.9 (previous WNL in 03/2021) i/s/o chronic pancreatitis Consider DM antibodies workup outpatient Plan: - SSI q6h while NPO - Diabetic education - Can start metformin upon d/c - f/u PCP for further management #Hypertension i/s/o pain Plan: - CTM vitals #Erythrocytosis Most likely 2/2 hemoconcentraiton Plan: - CTM CBC daily Checklist Dispo: Pancreatitis mgmt Lines: PIV Diet: npo, Bowel Reg: n/a VTE ppx: heparin subQ GI ppx: n/a Pain regemin now: APAP IV q6hr scheduled, percocet for moderate pain 6-10, dilaudid .5 mg for severe breakthrough pain, keterolac 50 q6hr for moderate pain OLD Pain mgmt: Tylenol 650 mg PO q6h, Oxycodone 5 PO q4h, Oxycodone 10 mg PO q4h, Dilaudid 2 mg IV q4h PRN, Toradol 15 mg IV q6h Code status: Full Plan discussed with my attending Dr. Sarbjit Buchanan MD PGY1 Attending Provider Attestation/Addendum Patient complains of epigastric pain. X-ray showed minimal ileus pattern. He is constipated. The patient has been receiving pain medications. I discussed with and supervised the resident physician who took care of this patient. I agree with the assessment and plan as above.
[2025-09-05] MEDS: ACETAMINOPHEN IVPB 1,000 MG/100 ML VIAL 250 MG IV ×2 (16:38→22:29)
--- NOTE | 2025-09-05 17:23 | PD.RESEVENT ---
Documentation for date of: 09/05/25 Event Note Event Note: Rapid response called at around 1050 AM for abdominal pain in the epigastrum 08/01 VS at start of Rapid: Afebrile T 98.6 Bulse 166, BP 144/109. spo2 97 on RA pt was seen and evaluated at bedside, pt endorsing severe abdominal pain after eating jello and drinking some juice with his clears tray for breakfast. He was initially feeling well and thought that he might be ready to go home prior to the rapid being called. the patient stated that he felt tingling over his whole body and that he had severe pain localized to his epigastrum. Likely that pain was 2/2 eating breakfast (clears) and had pain associated with pancreatitis. He was given x1 dilaudid 1 mg dose which helped to improve his symptoms. he appeared more comfortable and in less distress following the administration of the pain medication. pt was then made NPO given abdominal pain, continued on IV fluids at 200cc/hr, and modifications were made to his pain regimin, please see progress note for 09/05 with updated pain regimen. VS at end of Rapid Afebrile 98.4, SPo2 100, pain 08/01, bp 136/89
--- NOTE | 2025-09-06 00:10 | PC.NURSE ---
PT. AXO4, PT. REQUESTED TO LEAVE AMA DESPITE RE-EDUCATION REGARDING PLAN OF CARE, PAIN MANAGEMENT, AND MD. APPEARING AT BEDSIDE TO REAFFIRM THE PLAN OF CARE AT 2200 ON 09/05. MD COVINGTON NOTIFIED OF THE PATIENTS REQUEST. PT. VERBALIZED THE UNDERSTANDING OF THE RISKS INVOLVED WITH LEAVING AMA.
== END 2025-09-06 00:11 | disposition left against medical advice (07) | DRG 440 ==
LOC: SERX 05:34 → SERHOLD 05:45 → S3SX 06:26
PROVIDERS: Physician Assistant; Admitting Provider Student in an Organized Health Care Education/Training Program; Emergency Provider Emergency Medicine; Visit Provider Student in an Organized Health Care Education/Training Program
DX: K85.90 Acute pancreatitis without necrosis or infection, unspecified (principal); K86.1 Other chronic pancreatitis; E11.9 Type 2 diabetes mellitus without complications; E66.9 Obesity, unspecified; K59.00 Constipation, unspecified; I10 Essential (primary) hypertension; D75.1 Secondary polycythemia
CPT/HCPCS: 36415; 74018; 74176; 76705; 80053; 80320; 83036; 83690; 83735; 84100; 84478; 85025; 96361; 96374; 96375; 96376; 99284; J0131; J1171; J1644; J1885; J2250; J2270; J2405; J3475; J7120; A9270; G0480